=== PATIENT | male | born 1950 | race Caucasian/White ===

== ENCOUNTER 2018-11-20 02:39 | Emergency (ER) | payer SELFPAY ==
[2018-11-20 02:38] VITALS: BP 171/88; PULSE 104; RESP 20; TEMP 36.5; O2SAT 99
--- NOTE | 2018-11-20 02:53 | ED.GENADUL_ITS ---
Discharge Plan Disposition Patient Disposition: HOME Condition: Stable Discharge Details Chief Complaint: Diabetes Clinical Impression: Hyperglycemia Primary Care Provider: Aleksandr Estevez ED Provider: Vincent Estes Home Meds and New Rx's Prescriptions: Continued aspirin 325 mg Tablet 325 mg PO DAILY RF: 0 insulin aspart U-100 100 unit/mL (3 mL) Insulin Pen SUBCUT AC & HS RF: 0 Discharge Instructions Instructions: Diabetic Hyperglycemia (ED) Additional Instructions: I placed you on our follow up list to speak with care management to see if there is any assitance they can offer you. I also placed on the follow up list to see Dr. Estevez for diabetes management and blood pressure management if you feel more ill, have high fevers or worsening difficulty breathing return to the emergency department Medical Decision Making 67 yo male with hx of t2dm supposed to be on levemir 10mg bid and aspart but hasn't been taking his levemir for 10 weeks comes in with complaint of I got tired of walking. He apparently has been homeless, was homeless in [place] for quite some time then moved up here a few months ago and hasn't been taking his insulin. He recently was able to get assitance and moved into a hotel that assists homeless individuals in [place] but for some reason his room wasn't available [facility] so he started to walk from [place] to [facility] and after quite a bit of walking got tired so called ems. He arrives with no specific complaints and is pleasant on exam, caox4. He does have hyperglyemia as expected given him not taking his insulin. He declines blood work at this time and would just like to have some insulin and has capacity to make his own decisions. I will order him insulin for here and also place him on our rn critical care's list to reach out to him to see if there is any assitance they can offer him. He states he has prescriptions for insulin but finding funds for this has been difficult so hopefully care management may be able to assist with this. Will d/c after insulin and return precautions given. Placed him on follow up list to see his pcp for f/u and recheck of his bp. Differential Diagnosis Differential Diagnosis: t2dm, medical noncompliance HPI General Mode of arrival: EMS . Date/Time Provider Initiated Documentation: 11/20/18 02:40 . Limitations to Documentation: no limitations . Information obtained by: patient . History of Present Illness 67 year old M presents to the emergency department with the chief complaint of got tired of walking, Patient started experiencing this hour(s) (1) and it has been constant. No relieving factors improve symptom(s), No exacerbating factors reported . Patient did receive the following treatments prior to arrival, none Related Data Home Medications Medication Instructions Recorded Confirmed aspirin 325 mg PO DAILY 11/20/18 11/20/18 insulin aspart U-100 unit SUBCUT AC & HS 11/20/18 Allergies Allergy/AdvReac Type Severity Reaction Status Date / Time No Known Allergies Allergy Unverified 11/20/18 02:42 General Stated Complaint: Diabetes DREW: 3 Review of Systems Review of Systems ROS Unobtainable: All systems reviewed & are unremarkable except as noted in HPI and below Constitutional Constitutional: Denies chills, Denies fever(s) and Denies weakness Cardiovascular Cardiovascular: Denies dyspnea Respiratory Respiratory: Denies cough and Denies dyspnea Gastrointestinal Gastrointestinal: Denies abdominal pain, Denies nausea and Denies vomiting Musculoskeletal Musculoskeletal: Denies joint swelling Neurologic Neurologic: Denies weakness [facility] Social History Smoking/Tobacco Use Status: Never Alcohol Intake: never Drug use: Never Substance use type: does not use Do you feel safe at home: No (is homeless) Do you feel safe in your relationship?: Yes Exam Const General: no acute distress Orientation: alert HENMT Head: normal to inspection Ears: external ears normal General nose exam: external nose normal Mouth: moist mucous membranes Eyes General: appearance normal, both eyes and all related structures Neck Neck: normal visual inspection Resp Effort & Inspection: normal respiratory effort and able to speak in complete sentences Cardio Rate: regular rate Skin General skin exam: no rashes or lesions noted Neuro General: alert and oriented x3 Extrem General: normal to inspection Psych Mental Status: mental status grossly normal Course Vital Signs Vital signs: Vital Signs Temperature 36.5 C 11/20/18 02:38 Pulse 104 H 11/20/18 02:38 Respiratory Rate 20 11/20/18 02:38 Blood Pressure 171/88 H 11/20/18 02:38 Pulse Oximetry 99 11/20/18 02:38 Temperature 36.5 C 11/20/18 02:38 Temperature Source Temporal Artery Scan 11/20/18 02:38 Pulse 104 H 11/20/18 02:38 Respiratory Rate 20 11/20/18 02:38 Respiratory Effort 11/20/18 02:47 Blood Pressure 171/88 H 11/20/18 02:38 Blood Pressure Position Supine 11/20/18 02:38 Pulse Oximetry 99 11/20/18 02:38 Oxygen Delivery Method Room Air 11/20/18 02:38 Oxygen Flow Rate 0 11/20/18 02:38 Pain Level 0 11/20/18 02:38
--- NOTE | 2018-11-20 03:06 | NUR.NOTE ---
faxed referal 11/20/18Nursing Note:
[2018-11-20] MEDS: Insulin Aspart 100 UNITS/ML UNIT 10 UNITS SC (03:07)
== END 2018-11-20 03:28 | disposition home or self-care (01) ==
PROVIDERS: Emergency Provider Emergency Medicine; PCP General Practice
DX: E11.65 Type 2 diabetes mellitus with hyperglycemia (principal); Z91.120 Patient's intentional underdosing of medication regimen due to financial hardship; Z59.0 Homelessness
CPT/HCPCS: J1815; J3490

== ENCOUNTER 2018-11-20 06:05 | Emergency (ER) | payer MEDICARE, SELFPAY ==
[2018-11-20 05:49] VITALS: BP 125/113; PULSE 93; RESP 20; TEMP 36.1; O2SAT 98
--- NOTE | 2018-11-20 05:53 | ED.GENADUL_ITS ---
Discharge Plan Disposition Patient Disposition: HOME Condition: Stable Discharge Details Chief Complaint: GenMedical Clinical Impression: Blunt head trauma, General weakness, Fall Primary Care Provider: Aleksandr Estevez ED Provider: Cyndee Kendall Home Meds and New Rx's Prescriptions: Continued aspirin 325 mg Tablet 325 mg PO DAILY RF: 0 insulin aspart U-100 100 unit/mL (3 mL) Insulin Pen SUBCUT AC & HS RF: 0 insulin detemir U-100 100 unit/mL (3 mL) Insulin Pen 10 unit SUBCUT BID RF: 0 Discharge Instructions Instructions: Head Injury (ED), Weakness (ED) Additional Instructions: You likely were dehydrated from all the walking you did tonight Follow up with your scheduled appointment with your primary care doctor in 2 weeks. If you feel you are becoming more ill, have difficulty breathing or high fevers return to the emergency department Discharge Data Discharge Physician: Cyndee Kendall Medical Decision Making <Vincent Estes MD - Last Filed: 11/20/18 07:15> 67 yo male who has a hx of t2dm and is currently homeless comes in after his legs gave out and he hit his head on the ground. HE hasn't had his insulin in a few months and came in earlier to get some after walking from [place] as his hotel he had been staying at said he had no room overnight. He walked from here into [facility] and states he sat on a bench then tried to stood up, his legs got weak and he fell hitting his head on the ground. He is unsure of loc. Denies chest pain, sob, abd pain. He has no focal neuro deficits on exam, NIH of 0. I suspect this was orthostasis vs overexertion given the amount of walking he had today. Will eval for anemia and electrolyte abnoramlities and obtain ct head. Has no midline neck pain so doubt c spin einjury and has full rom of the neck. No chest pain or sob so doubt entities such as acs or PE or dissection. HE has a small 2cm hematoma on right forehead with abrasion, he is unsure of last tetanus status, will administer tdap here. pt remains stable, has ckd not significantly increased from prior and low mag and mild low K of 3.3. CT head negative and is feeling better. Suspect dehydration from amount of walking he had. Given his social situation and not having his meds will see if care management has any resources they can offer him before d/c Differential Diagnosis Differential Diagnosis: electrolyte abnormality, anemia, vasovagal Imaging Data Radiologic Study: Attestation: I personally reviewed and interpreted this imaging study as follows: Imaging: CT Scan Radiologist's impression: IMPRESSION: No acute intracranial abnormalities. Lab Data Lab results reviewed: Yes I reviewed the patient's lab results. ECG Data Attestation: I personally reviewed and interpreted this ECG (s) as follows: Prior ECG tracings: not available for review Interpretation: sinus rhythm, rate of 83, qtc 451 <Cyndee Kendall DO - Last Filed: 11/20/18 08:28> Please see Dr. Estes's notes for initial presentation and course. Patient seen by Dominga from care management and it was determined that patient is pretty well connected and has plenty of resources. He has an appointment with his primary care doctor Dr. Estevez in 2 weeks. He states he now has all of his medications. He is planning to call a friend today to see if he can stay with him until a bed is available at the motel he was staying on Thursday. Patient has whose contact information and she will follow-up with patient later today if he is unable to obtain housing for the next few days and she will look into a long-term. Patient states he feels good to go home. He is advised to return here with any worsening or concerning symptoms. HPI <Vincent Estes MD - Last Filed: 11/20/18 07:15> General Mode of arrival: EMS . Date/Time Provider Initiated Documentation: 11/20/18 06:35 . Limitations to Documentation: no limitations . Information obtained by: patient . History of Present Illness 67 year old M presents to the emergency department with the chief complaint of leg weakness, described as moderate, and it has been constant. No relieving factors improve symptom(s), No exacerbating factors reported . Patient did receive the following treatments prior to arrival, none Related Data Home Medications Medication Instructions Recorded Confirmed aspirin 325 mg PO DAILY 11/20/18 11/20/18 insulin aspart U-100 unit SUBCUT AC & HS 11/20/18 insulin detemir U-100 10 unit SUBCUT BID 11/20/18 11/20/18 Allergies Allergy/AdvReac Type Severity Reaction Status Date / Time No Known Allergies Allergy Unverified 11/20/18 05:51 General Stated Complaint: GenMedical DREW: 4 Review of Systems <Vincent Estes MD - Last Filed: 11/20/18 07:15> Review of Systems ROS Unobtainable: All systems reviewed & are unremarkable except as noted in HPI and below Constitutional Constitutional: Denies chills and Denies fever(s) Cardiovascular Cardiovascular: Denies chest pain and Denies dyspnea Respiratory Respiratory: Denies dyspnea Gastrointestinal Gastrointestinal: Denies abdominal pain, Denies nausea and Denies vomiting PFSH <Vincent Estes MD - Last Filed: 11/20/18 07:15> Social History Smoking/Tobacco Use Status: Never Alcohol Intake: never Drug use: Never Substance use type: does not use Do you feel safe at home: No (patient is homeless) Do you feel safe in your relationship?: Yes Exam <Vincent Estes MD - Last Filed: 11/20/18 07:15> Const General: no acute distress Orientation: alert HENMN Head: normal to inspection Ears: external ears normal General nose exam: external nose normal Mouth: moist mucous membranes Eyes General: appearance normal, both eyes and all related structures Neck Neck: normal visual inspection Resp Effort & Inspection: normal respiratory effort and able to speak in complete sentences Cardio Rate: regular rate Skin General skin exam: no rashes or lesions noted Neuro General: alert and oriented x3 Extrem General: normal to inspection Psych Mental Status: mental status grossly normal Course <Vincent Estes MD - Last Filed: 11/20/18 07:15> Vital Signs Vital signs: Vital Signs Temperature 36.1 C L 11/20/18 05:49 Pulse 93 H 11/20/18 05:49 Respiratory Rate 20 11/20/18 05:49 Blood Pressure 125/113 H 11/20/18 05:49 Pulse Oximetry 98 11/20/18 05:49 Temperature 36.1 C L 11/20/18 05:49 Temperature Source Temporal Artery Scan 11/20/18 05:49 Pulse 93 H 11/20/18 05:49 Respiratory Rate 20 11/20/18 05:49 Blood Pressure 125/113 H 11/20/18 05:49 Blood Pressure Position Supine 11/20/18 05:49 Pulse Oximetry 98 11/20/18 05:49 Oxygen Delivery Method Room Air 11/20/18 05:49 Oxygen Flow Rate 0 11/20/18 05:49 Pain Level 0 11/20/18 05:49 Sign Out <Vincent Estes MD - Last Filed: 11/20/18 07:15> Sign Out Data: Sign Out Comment: follow up on case management recs Last updated by Vincent Estes MD at 11/20/18 07:41
[2018-11-20 05:55] VITALS: RESP 18
[2018-11-20] MEDS: Normal Saline 1,000 ML 1000 ML IV (06:10)
[2018-11-20 06:20] VITALS: BP 158/73
[2018-11-20 06:32] LABS: Abs Immature Grans 0.07 k/cumm (0.0-0.09); Absolute Monocyte Count 0.59 k/cumm (0.11-0.7); Basophils % 0.5; Eosinophils % 0.8; HCT 38.4 % (40.0-50.0); HGB 13.6 g/dL (13.5-17.5); Immature Grans % 0.5; Lymphocytes % 7.1; Mean Corp. HGB Concentration 35.4 g/dL (32.0-36.0); Mean Corpuscular Hemoglobin 31.7 pg (27.0-33.0); Mean Corpuscular Volume 89.5 fL (80-95); Mean Platelet Volume 9.7 fL (8.0-11.0); Monocytes % 4.6; Neutrophils % 86.5; Platelet Count 244 x1000/uL (130-400); RBC 4.29 m/cumm (4.50-6.00); RBC Distribution Width 13.1 % (11.8-14.1); White Blood Cell Count 12.88 k/cumm (4.4-10.8)
[2018-11-20 06:34] LABS: Absolute Basophil Count 0.06 k/cumm (0.0-0.2); Absolute Lymphocyte Count 0.91 k/cumm (1.2-3.4); Absolute Neutrophil Count 11.14 k/cumm (1.2-6.7); pCO2 (Venous) 50 mm/Hg (34-47); pH (Venous) 7.38 (7.32-7.43); pO2 (Venous) 22 mm/Hg (28-44)
[2018-11-20 06:35] LABS: HCO3 (Venous) 29 mmol/L (22-28); TCO2 (Venous) 27 mmol/L (22-29)
[2018-11-20 06:37] LABS: O2 Sat (Venous) 33 % (70-80)
--- NOTE | 2018-11-20 06:38 | DI.CT_ITS ---
EXAM: CT HEAD WO CLINICAL HISTORY: pain s/p fall. TECHNIQUE: Imaging Protocol: Axial computed tomography images with coronal and sagittal reformatted images were created and reviewed COMPARISON: No exams were available for comparison FINDINGS: There is moderate generalized cerebral atrophy. No evidence of acute intracranial hemorrhage, mass effect, or midline shift. The orbital structures are unremarkable. The temporal bone structures appear intact. Calvarium: Normal. Visualized Paranasal sinuses/Mastoids: Mild mucoperiosteal thickening maxillary antra noted. IMPRESSION: No evidence of acute process.. DATA REPOSITORY: All CT scans at this facility are submitted to the National Radiology Data Registry (NRDR) Dose Index Registry (DIR) with the [employer] (ACR). RADIATION OPTIMIZATION: All CT scans at this facility use at least one of these dose optimization te chniques: automated exposure control; mA and/or kV adjustment per patient size (includes targeted exa ms where dose is matched to clinical indication); or iterative reconstruction.
[2018-11-20 06:49] LABS: PTT Activated 21.6 sec (21.0-31.4); Prothrombin Time 9.8 sec (9.3-11.0)
[2018-11-20 06:54] LABS: ALT 42 U/L (16-63); AST 32 U/L (15-37); Albumin 4.1 g/dL (3.4-5.0); Alkaline Phosphatase 157 U/L (46-116); Anion Gap 13.8 mmol/L (3-11); BUN 35 mg/dL (7-18); Bilirubin, Total 0.4 mg/dL (0.2-1.0); CO2 28.2 mmol/L (21.0-32.0); CREATININE 1.63 mg/dL (0.70-1.30); Calcium 9.6 mg/dL (8.5-10.1); Chloride 94 mmol/L (98-107); Estimated GFR 42.67 (mL/min/1.73m2); Glucose 274 mg/dL (70-100); Magnesium 1.3 mg/dL (1.8-2.4); Potassium 3.2 mmol/L (3.5-5.1); Sodium 136 mmol/L (136-145); Total Protein 8.2 g/dL (6.4-8.2)
[2018-11-20 06:55] LABS: Troponin I < 0.05 ng/mL (0.00-0.06)
--- NOTE | 2018-11-20 07:01 | DI.VRAD_ITS ---
PROCEDURE INFORMATION: Exam: CT Head Without Contrast Exam date and time: 11/20/2018 5:53 AM Clinical history: 67 years old, male; Injury or trauma; Fall; Initial encounter; Blunt trauma (contusions or hematomas) and laceration; Consciousness not specified; Without residual foreign body; Forehead; Injury date: 11/20/2018; Injury details: Small bump and lac above right eyebrow TECHNIQUE: Imaging protocol: Computed tomography of the head without contrast. Radiation optimization: All CT scans at this facility use at least one of these dose optimization techniques: automated exposure control; mA and/or kV adjustment per patient size (includes targeted exams where dose is matched to clinical indication); or iterative reconstruction. COMPARISON: No relevant prior studies available. FINDINGS: Brain: Moderate cerebral atrophy. No significant white matter changes. No hemorrhage. Ventricles: Normal. No ventriculomegaly. Bones/joints: Unremarkable. No acute fracture. Sinuses: Mild mucosal thickening, both maxillary sinuses. Mastoid air cells: Visualized mastoid air cells are well aerated. Soft tissues: Unremarkable. IMPRESSION: No acute intracranial abnormalities. Dictated and Authenticated by: Toby Ramirez MD. Ordering:ANGELO Kaur MD
[2018-11-20] MEDS: Magnesium Chloride 64 MG TABCR PO (07:54)
[2018-11-21 06:55] LABS: BE (Venous) 4.2 mmol/L (-3-3)
== END 2018-11-20 08:46 | disposition home or self-care (01) ==
PROVIDERS: Emergency Medicine; Emergency Provider Physician Assistant; PCP General Practice
DX: S00.03XA Contusion of scalp, initial encounter (principal); R53.1 Weakness; Z91.14 Patient's other noncompliance with medication regimen; W01.0XXA Fall on same level from slipping, tripping and stumbling without subsequent striking against object, initial encounter; Z59.0 Homelessness
CPT/HCPCS: 36415; 36416; 80053; 82805; 82962; 90471; 93005; 96360; 96372; 99284; 70450; 83735; 84484; 85025; 85610; 85730; 93010; J1815; J3490

== ENCOUNTER 2019-02-15 11:27 | Outpatient (REF) | payer OTHER, MEDICAID, SELFPAY ==
[2019-02-15 19:33] LABS: PROTEIN 28.1 mg/dL
[2019-02-15 19:42] LABS: COMMENT (LAB VIEW ONLY) 41.36 mg/dL
[2019-02-15 20:03] LABS: COMMENT (LAB VIEW ONLY) 41.44 mg/dL; Microalb ug/mg Crea 269.1 ug/mg Cr; Prot/Crea Ur Ratio 0.67
== END 2019-02-15 11:47 ==
LOC: NCHCN 11:27
PROVIDERS: PCP Nurse Practitioner Family; Visit Provider Nurse Practitioner Family
DX: I10 Essential (primary) hypertension (principal); E10.9 Type 1 diabetes mellitus without complications
CPT/HCPCS: 82043; 82565; 82570; 84156

== ENCOUNTER 2019-02-24 14:49 | Inpatient (IN) | payer OTHER, MEDICAID, SELFPAY ==
[2019-02-24] VITALS (110 sets, daily range): BP systolic 106–178; BP diastolic 63–104; PULSE 70–98; RESP 9–24; TEMP 35.6–36.9; O2SAT 94–99
[2019-02-24] MEDS: Aspirin 81 MG CHEW 324 MG CH (15:23)
[2019-02-24] MEDS: Lactated Ringers 1,000 ML 1000 ML IV (15:25)
[2019-02-24 15:28] LABS: Abs Immature Grans 0.02 k/cumm (0.0-0.09); Absolute Basophil Count 0.06 k/cumm (0.0-0.2); Absolute Eosinophil Count 0.18 k/cumm (0.0-0.7); Absolute Lymphocyte Count 1.41 k/cumm (1.2-3.4); Absolute Monocyte Count 0.53 k/cumm (0.11-0.7); Absolute Neutrophil Count 6.01 k/cumm (1.2-6.7); Basophils % 0.7; Eosinophils % 2.2; HCT 37.4 % (40.0-50.0); HGB 13.2 g/dL (13.5-17.5); Immature Grans % 0.2 %; Lymphocytes % 17.2; Mean Corp. HGB Concentration 35.3 g/dL (32.0-36.0); Mean Corpuscular Hemoglobin 31.2 pg (27.0-33.0); Mean Corpuscular Volume 88.4 fL (80-95); Mean Platelet Volume 10.5 fL (8.0-11.0); Monocytes % 6.5; Neutrophils % 73.2; Platelet Count 229 x1000/uL (130-400); RBC 4.23 m/cumm (4.50-6.00); RBC Distribution Width 12.7 % (11.8-14.1); White Blood Cell Count 8.21 k/cumm (4.4-10.8)
--- NOTE | 2019-02-24 15:34 | W.ED.GENAD ---
Discharge Plan Disposition Patient Disposition: [facility] INPATIENT Condition: Fair Discharge Details Chief Complaint: Chest Pain Clinical Impression: Chest pain, Hyperglycemia Admit Date/Time: 02/24/19 19:08 Admit Provider: Aleksandr Ho Attending Provider: Aleksandr Ho Primary Care Provider: Pal Luo ED Provider: Twila Jain Medical Decision Making <MP Vega - Last Filed: 02/24/19 16:14> This is a nontoxic-appearing 68-year-old male presenting to the emergency department with intermittent chest pain over the last 12 hours. Unable to provoke symptoms. Moderate heart score and based on age, story and risk factors. His EKG shows sinus rhythm without ST changes. Blood glucose greater than 500 on glucometer. Normal pH on venous blood gas. LR running at 1000 cc an hour. Chest x-ray negative for any infiltrate. Most likely require admission based on heart score and uncontrolled diabetes. Case signed over to Magdalena WEBB at shift change. <MP Duque - Last Filed: 02/24/19 21:18> Accepted this 68-year-old patient who complained of chest pain today with a history of diabetes as well as hypertension, noncompliant with his daily medications. Patient has multiple social barriers specifically he is homeless and has not had the finances to pay for his medications. Patient presents with a serum blood sugar of 784. Patient reports feeling symptomatic but denies nausea, vomiting. Patient's initial presentation for the emergency room this evening was for complaints of chest pain which was intermittent through the afternoon then developed radiating symptoms into his left arm. Upon patient's evaluation in the emergency room he is reportedly chest pain-free. Patient's initial labs were reviewed, VBG reveals no evidence of acidosis at this time. Patient's lactate initially somewhat elevated 1.9. Patient has no complaints of fever or chills. No obvious infectious symptoms. Patient's history does not include a cardiac evaluation within the last few years and including a stress test and echo. Review of patient's EKG reveals no ST segment changes, regular rate and rhythm of 91. This was previously reviewed with Dr. Angel by the previous provider. Heart Score: 4 = moderate risk Patient initially received 1 L of LR, aborted a second liter of normal saline. Given patient's blood sugar of 784 and initial bolus based on his weight of 7 units was provided followed by an insulin drip of 7 units an hour per [facility] protocol. Patient subsequent labs revealed a initial troponin which was negative. Lactate elevated to 4.0. Patient's blood sugar improved to 445. Spoke with the hospitalist regarding admitting this patient. Recommended continued IV fluids at a rate of 250/h. He will enter admission orders and plan to follow the patient for his complaints of chest pain as well as manage blood sugars. I did consult to case management director as there are quite obviously social issues and barriers in this patient getting his medications normally. Plan of care at this time is admit to the hospital. HPI <MP Vega - Last Filed: 02/24/19 16:14> General Date/Time Provider Initiated Documentation: 02/24/19 14:51. HPI Narrative: Patient is a 68-year-old male with medical history for insulin-dependent diabetes who presents to the emergency department with roughly 12 to 24 hours of intermittent left-sided chest pain. He denies any preceding symptoms. He has been under significant amount of stress based on his living situation and is currently homeless. He reports developing left arm tingling roughly 45 minutes prior to arrival in association with his chest pain. He denies any chest pain at this time. He denies any shortness of breath. No fever or cough. He has been roughly 1 week without any insulin based on financial issues and having his insurance removed. He has had frequent urination. No abdominal pain or dysuria. Patient states that he had similar chest pain symptoms roughly 1 year ago where he was admitted to the hospital in [place]. He had an extensive work-up at that time and was hospitalized for roughly 1 week. He states that he had no cardiac intervention at that time. Related Data Home Medications Medication Instructions Recorded Confirmed aspirin 325 mg PO DAILY 11/20/18 02/24/19 insulin aspart U-100 unit SUBCUT AC & HS 11/20/18 insulin detemir U-100 10 unit SUBCUT BID 11/20/18 02/24/19 Allergies Allergy/AdvReac Type Severity Reaction Status Date / Time No Known Allergies Allergy Unverified 02/24/19 14:56 General Stated Complaint: Chest Pain DREW: 2 Review of Systems <MP Vega - Last Filed: 02/24/19 16:14> Constitutional Constitutional: Reports chills, Denies fatigue, Denies fever(s), Denies malaise, Denies night sweats and Denies weakness Cardiovascular Cardiovascular: Reports chest pain, Reports chest pain at rest, Denies chest pain with activity, Denies diaphoresis, Denies syncope, Denies pedal edema, Reports edema, Reports leg edema, Denies lightheadedness, Denies palpitations and Denies dyspnea Respiratory Respiratory: Denies cough and Denies dyspnea Gastrointestinal Gastrointestinal: Denies abdominal pain, Denies nausea and Denies vomiting Genitourinary Genitourinary: Denies dysuria and Reports nocturia Musculoskeletal Musculoskeletal: Denies back pain, Denies numbness and Denies stiffness Neurologic Neurologic: Denies syncope, Denies numbness and Denies weakness Endocrine Endocrine: Denies fatigue, Reports polyphagia, Reports polydipsia, Reports polyuria and Denies palpitations PFSH <MP Vega - Last Filed: 02/24/19 16:14> Medical History HTN (hypertension) (Chronic) Uncontrolled type 2 diabetes mellitus with chronic kidney disease (Acute) Social History Smoking/Tobacco Use Status: Never Alcohol Intake: never Drug use: Never Substance use type: does not use Do you feel safe at home: No (patient is homeless) Do you feel safe in your relationship?: Yes Exam <MP Vega - Last Filed: 02/24/19 16:14> Const General: cooperative, healthy appearing, comfortable and no acute distress Orientation: alert, awake and oriented x3 HENMT Head: normal to inspection Ears: hearing grossly normal bilaterally General nose exam: external nose normal Face and sinus: normal facial exam Mouth: oral mucosae normal Teeth and gingiva: poor dentition Eyes Pupils: PERRL EOM: EOM intact bilaterally Neck Neck: normal visual inspection and full ROM Chest Chest: normal inspection of the chest and normal palpation of entire chest wall Resp Effort & Inspection: normal respiratory effort and able to speak in complete sentences Auscultation: clear to auscultation bilaterally Cardio Rate: regular rate Rhythm: regular rhythm Pulses: normal peripheral pulses GI Inspection: normal to inspection Palpation: soft and nontender Back/Spine/Pelvis Back: no CVA tenderness Skin General skin exam: no rashes or lesions noted Extrem General: normal to inspection, full ROM, no pedal edema and no calf tenderness Course <MP Vega - Last Filed: 02/24/19 16:14> Vital Signs Vital signs: Vital Signs Temperature 36.9 C 02/24/19 14:54 Pulse 92 H 02/24/19 14:54 Respiratory Rate 18 02/24/19 14:54 Blood Pressure 157/99 H 02/24/19 14:54 Pulse Oximetry 98 02/24/19 14:54 Temperature 36.9 C 02/24/19 14:54 Temperature Source Skin 02/24/19 14:54 Pulse 88 02/24/19 15:15 Pulse 85 02/24/19 15:20 Respiratory Rate 14 02/24/19 15:20 Respiratory Effort 02/24/19 15:18 Respiratory Depth Normal 02/24/19 15:18 Respiratory Pattern Normal 02/24/19 15:18 Blood Pressure 156/88 H 02/24/19 15:15 Blood Pressure Mean 105 02/24/19 15:15 Blood Pressure Position Supine 02/24/19 14:54 Pulse Oximetry 96 02/24/19 15:20 Oxygen Delivery Method Room Air 02/24/19 14:54 Oxygen Flow Rate 0 02/24/19 14:54 Pain Level 4 02/24/19 14:54 Sign Out <MP Vega - Last Filed: 02/24/19 16:14> Sign Out Data: Sign Out Comment: Patient is a 68-year-old male moderate heart score complaining of chest pain. EKG shows sinus rhythm without any ST changes. Concern for elevated blood sugars with glucometer reading above 500. Normal pH on venous blood gas. Normal CBC awaiting remainder of labs. IV fluids running LR at 1000 cc an hour. Will most likely require admission based on heart score alone. Case signed over to Cristobal PAC at shift change Last updated by Campbell Bloom PA at 02/24/19 16:07
[2019-02-24 15:38] LABS: BE (Venous) 6.8 mmol/L (-3-3); HCO3 (Venous) 31 mmol/L (22-28); O2 Sat (Venous) 71 % (70-80); TCO2 (Venous) 28 mmol/L (22-29); pCO2 (Venous) 49 mm/Hg (34-47); pH (Venous) 7.42 (7.35-7.45); pO2 (Venous) 38 mm/Hg (28-44)
[2019-02-24 15:43] LABS: Lactate 1.9 mmol/L (0.6-1.4)
--- NOTE | 2019-02-24 15:46 | DI.RAD_ITS ---
EXAM: XR CHEST 2V PA LATERAL INDICATION: left sided chest pain, left arm pain. resolved. COMPARISON: No exams were available for comparison TECHNIQUE: 2D digital imaging was performed. FINDINGS: The heart size is normal. The lungs appear clear. Scoliosis is noted. No compression fractures ar e seen. There is no evidence of pneumothorax. IMPRESSION: No acute abnormality.
[2019-02-24 16:02] LABS: ALT 28 U/L (16-63); AST 21 U/L (15-37); Albumin 3.5 g/dL (3.4-5.0); Alkaline Phosphatase 118 U/L (46-116); Anion Gap 9.1 mmol/L (3-11); BUN 33 mg/dL (7-18); Bilirubin, Total 0.3 mg/dL (0.2-1.0); CO2 29.9 mmol/L (21.0-32.0); CREATININE 1.74 mg/dL (0.70-1.30); Chloride 89 mmol/L (98-107); Estimated GFR 39.45 (mL/min/1.73m2); Magnesium 1.3 mg/dL (1.8-2.4); Potassium 4.4 mmol/L (3.5-5.1); Sodium 128 mmol/L (136-145); Total Protein 6.9 g/dL (6.4-8.2)
[2019-02-24 16:05] LABS: Bilirubin Negative (Negative); Blood Trace-intact (Negative); Clarity Clear (Clear); Glucose 500 mg/dL (Negative); Ketones Negative (Negative); Leukocyte Esterase Negative (Negative); Nitrite Negative (Negative); Specific Gravity 1.015 (1.005-1.025); Urobilinogen 0.2 EU/dL (Up TO 0.2)
[2019-02-24 16:09] LABS: Troponin I < 0.05 ng/Ml (<0.06)
--- NOTE | 2019-02-24 16:13 | NUR.NOTE ---
diabetic meal tray ordered for pt Nursing Note:
[2019-02-24 16:14] LABS: Bacteria Rare HPF (Negative); C & S Indicated? No; Casts Negative LPF (Negative); Crystals Negative HPF (Negative); Epithelial Cells Negative HPF (Negative); Mucus Negative (Negative); RBC 0-2 HPF (0-2); WBC Negative HPF (0-5)
[2019-02-24 16:17] LABS: Glucose 784 mg/dL (74-106)
[2019-02-24] MEDS: Normal Saline 1,000 ML 1000 ML IV (17:00)
[2019-02-24] MEDS: Insulin NPH-Human 300 UNITS/3 ML PEN 7 UNIT SC (17:07)
[2019-02-24] MEDS: INSULIN REGULAR IN 0.9 % NACL 100 UNIT/100 ML BAG 7 UNIT IV (17:13)
[2019-02-24 19:10] LABS: ALT 23 U/L (16-63); AST 15 U/L (15-37); Albumin 2.9 g/dL (3.4-5.0); Alkaline Phosphatase 98 U/L (46-116); Anion Gap 9.8 mmol/L (3-11); BUN 29 mg/dL (7-18); Bilirubin, Total 0.2 mg/dL (0.2-1.0); CO2 29.2 mmol/L (21.0-32.0); CREATININE 1.91 mg/dL (0.70-1.30); Calcium 8.4 mg/dL (8.5-10.1); Chloride 97 mmol/L (98-107); Estimated GFR 35.43 (mL/min/1.73m2); Glucose 445 mg/dL (74-106); Potassium 3.7 mmol/L (3.5-5.1); Sodium 136 mmol/L (136-145); Total Protein 5.8 g/dL (6.4-8.2)
[2019-02-24] MEDS: Normal Saline 1,000 ML 250 ML IV ×2 (19:10→22:39)
--- NOTE | 2019-02-24 19:18 | W.PM.HP.N ---
Date of service: 02/24/19 Time of Service: 19:19 Assessment and Plan Assessment and plan (1) HHNC (hyperglycemic hyperosmolar nonketotic coma): Start date: 02/24/19 Status: Acute Assessment and plan: This is a 68-year-old gentleman who is been off treatment for diabetes recently because of cost. He also was having problems with housing and most likely diet. He was seen in the ED and initiated on fluid resuscitation and given an insulin drip with quick response and glucometer just measured less than 200. He was hypertensive when first admitted but this resolved with hydration. He was never acidotic. He will be taken off insulin drip and started on every 2 hour glucometer coverage with Humalog with continued IV hydration and follow-up on lactate which was elevated. If his glucose does rise despite every 2 hour coverage we could restart the insulin drip cautiously. He never had DKA. Long-term he needs to be restarted on his usual insulin therapy with diet with his housing and diet stress hopefully to be resolved prior to discharge with placement to a [facility] members home and possibly reviewing his insurance coverage to afford medical therapy. He does have a local primary care physician who has seen him recently. He was seeing Dr. Esteevz but had to change because of this practice closing. (2) Atypical chest pain: Start date: 02/24/19 Status: Acute Assessment and plan: Patient chest pain was atypical and he had recent full evaluation in [facility]. I will start him on Lipitor and check fasting lipids in the morning but hold on AVINASH inhibitor or other therapy for now. He could be reevaluated with cardiology if necessary but first his primary care physician needs to review his recent evaluation in [place]. Poor diabetes control does put him at increased risk for advanced atherosclerotic vessel disease. (3) CKD (chronic kidney disease): Status: Chronic Assessment and plan: Patient states that he has had problems with renal insufficiency in the past and this probably has been exacerbated by his acute hyperglycemic state with dehydration. Follow-up renal functions on normal saline with aggressive fluid resuscitation to continue overnight. He is eating well and should do well with conversion to oral hydration and diet once stabilized in the next 24 to 40 hours. Qualifiers: Chronic kidney disease stage: stage 2 (mild) Qualified Code(s): N18.2 - Chronic kidney disease, stage 2 (mild) History of Present Illness History of Present Illness Chief Complaint: Intermittent chest pain going down left arm with hyperglycemia Narrative: This is a 68-year-old gentleman who lives and a hotel at this time but overall has trouble with housing locally having moved from [place] back to [place] over this last year. He is a diabetic for 30 years and has been on insulin recently but cannot afford his insulin and has been off medical therapy. He had a glucometer greater than 500 in the field and in the ED his serum glucose was 74. He was initiated on lactated Ringer's and switched to normal saline with his lactate being elevated on the second measurement. He also was started on an insulin drip with his glucose below 500 when last measured prior to admission to the ICU. He states that in [place] he was evaluated in [place] for chest pain including stress test and echocardiogram with the patient discharged on medical therapy including possible AVINASH inhibitor and statin. Recently has not been on medical therapy. He does have a history of hypertension intermittently. Patient's chest pain prior to admission resolved in the ED and never returned with a negative cardiac evaluation and follow-up troponins pending after admission. He is on bus monitor with sinus rhythm. He is a poorly controlled diabetic with his recent primary care locally measuring his hemoglobin A1c which was the range of 15. He was having polyuria and polydipsia prior to admission but had no problem with nausea vomiting or fluid loss. He said no recent fever or symptoms of infection. He denies dysuria. Patient lives on Social Security and recently his insulin cost increased from a co-pay of $8 to an unaffordable co-pay. 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 hotel operations manager will be consulted to help him with his social and economic issues. Review of Systems Narrative: 13 point review of systems otherwise unrevealing or stable. Denies any significant weight loss. He is very active walking as a mode of transportation having no claudication or shortness of breath. [facility] Medical History HTN (hypertension) (Chronic) Uncontrolled type 2 diabetes mellitus with chronic kidney disease (Acute) Social History Smoking/Tobacco Use Status: Never Alcohol Intake: never Drug use: Never Substance use type: does not use Do you feel safe at home: No (patient is homeless) Do you feel safe in your relationship?: Yes Meds Home Medications and Allergies Home Medications Medication Instructions Recorded Confirmed Type aspirin 325 mg PO DAILY 11/20/18 02/24/19 History insulin aspart U-100 unit SUBCUT AC & HS 11/20/18 History insulin detemir U-100 10 unit SUBCUT BID 11/20/18 02/24/19 History Allergies Allergy/AdvReac Type Severity Reaction Status Date / Time No Known Allergies Allergy Unverified 02/24/19 14:56 Exam Narrative Exam Narrative: General: Patient appears older than stated age and in no acute distress, thin and alert and oriented x3. Skin: Pale, cool and dry. HEENT: Normocephalic with coarsened facial features, eyes with pupils equal reactive light symmetrically, extraocular movement intact and sclera anicteric. Oropharynx with dry oral mucosa. External ears normal. Neck: Supple without JVD. Back: Stooped posture with no CVA tenderness. Lungs: Clear to auscultation and percussion. Heart: Regular rate and rhythm with no murmurs or gallops appreciated. Abdomen: Soft, nontender to palpation and no palpable hepatosplenomegaly. Bowel sounds are positive in all quadrants. Genitalia/rectal: Exam deferred. Extremities: No pitting edema, cyanosis or clubbing. Toenails are thickened and opaque with kandice's horn toenails over the large toenails. All joints have fair range of motion. Peripheral pulses intact with posterior tib pulses 2+ bilaterally and dorsalis pedis pulses more difficult to palpate. Neuro: No focalizing motor deficits, cranial nerves II through XII grossly intact, light touch over both feet intact. Psych: Flattened affect but normal variation, good eye contact. Mood normal. Remote and recent memory intact. Results Imaging Imaging Studies: Exam(s) a RAD:XR chest 2V PA & lateral EXAM: XR CHEST 2V PA LATERAL INDICATION: left sided chest pain, left arm pain. resolved. COMPARISON: No exams were available for comparison TECHNIQUE: 2D digital imaging was performed. FINDINGS: The heart size is normal. The lungs appear clear. Scoliosis is noted. No compression fractures are seen. There is no evidence of pneumothorax. IMPRESSION: No acute abnormality. Labs Result diagrams: 02/24/19 15:10 02/24/19 18:44 Labs: Laboratory Results - last 24 hr 02/24/19 02/24/19 02/24/19 15:10 15:10 15:10 WBC 8.21 RBC 4.23 L Hgb 13.2 L Hct 37.4 L MCV 88.4 MCH 31.2 MCHC 35.3 RDW 12.7 Plt Count 229 MPV 10.5 Immature Gran % 0.2 Neutrophils % 73.2 Lymphocytes % 17.2 Monocytes % 6.5 Eosinophils % 2.2 Basophils % 0.7 Absolute Neutrophils 6.01 Absolute Lymphocytes 1.41 Absolute Monocytes 0.53 Absolute Eosinophils 0.18 Absolute Basophils 0.06 VBG pH VBG pCO2 VBG pO2 VBG HCO3 VBG Total CO2 VBG O2 Saturation VBG Base Excess Sodium 128 L Potassium 4.4 Chloride 89 L Carbon Dioxide 29.9 Anion Gap 9.1 BUN 33 H Creatinine 1.74 H Estimated GFR/1.73 m2 39.45 Glucose 784 H* Lactate 1.9 H Calcium 9.0 Magnesium 1.3 L Total Bilirubin 0.3 AST 21 ALT 28 Alkaline Phosphatase 118 H Troponin I < 0.05 Total Protein 6.9 Albumin 3.5 Urine Color Urine Clarity Urine pH Ur Specific [place] Urine Protein Urine Ketones Urine Blood Urine Nitrite Urine Bilirubin Urine Urobilinogen Ur Leukocyte Esterase Urine RBC Urine WBC Ur Epithelial Cells Urine Crystals Urine Bacteria Urine Casts Urine Mucus Ur Culture Indicated? Urine Glucose 02/24/19 02/24/19 02/24/19 15:10 16:00 18:44 WBC RBC Hgb Hct MCV MCH MCHC RDW Plt Count MPV Immature Gran % Neutrophils % Lymphocytes % Monocytes % Eosinophils % Basophils % Absolute Neutrophils Absolute Lymphocytes Absolute Monocytes Absolute Eosinophils Absolute Basophils VBG pH 7.42 VBG pCO2 49 H VBG pO2 38 VBG HCO3 31 H VBG Total CO2 28 VBG O2 Saturation 71 VBG Base Excess 6.8 H Sodium Potassium Chloride Carbon Dioxide Anion Gap BUN Creatinine Estimated GFR/1.73 m2 Glucose Lactate 4.0 H* Calcium Magnesium Total Bilirubin AST ALT Alkaline Phosphatase Troponin I Total Protein Albumin Urine Color Yellow Urine Clarity Clear Urine pH 7.0 Ur Specific [place] 1.015 Urine Protein Negative Urine Ketones Negative Urine Blood Trace-intact H Urine Nitrite Negative Urine Bilirubin Negative Urine Urobilinogen 0.2 Ur Leukocyte Esterase Negative Urine RBC 0-2 Urine WBC Negative Ur Epithelial Cells Negative Urine Crystals Negative Urine Bacteria Rare Urine Casts Negative Urine Mucus Negative Ur Culture Indicated? No Urine Glucose 500 H Last Vital Signs Temp 36.9 C 02/24/19 14:54 Pulse 83 02/24/19 18:46 Resp 12 02/24/19 18:50 BP 134/75 02/24/19 18:46 Pulse Ox 96 02/24/19 18:50
[2019-02-24 19:20] LABS: Troponin I < 0.05 ng/Ml (<0.06)
[2019-02-24] MEDS: MAGNESIUM SULFATE 2 GM/50 ML BAG IVPB (19:27)
[2019-02-24 20:07] LABS: TSH 1.73 uIU/mL (0.36-3.74)
[2019-02-24] MEDS: Enoxaparin 40 MG/0.4 ML SYR SC (21:36)
[2019-02-25] VITALS (70 sets, daily range): BP systolic 95–139; BP diastolic 63–103; PULSE 66–88; RESP 8–21; TEMP 36.5–36.7; O2SAT 95–99
[2019-02-25 00:09] LABS: Lactate 1.5 mmol/L (0.6-1.4)
[2019-02-25] MEDS: Insulin Aspart 300 UNITS/3 ML PEN SC ×8 (00:18→21:21)
[2019-02-25 00:35] LABS: Troponin I < 0.05 ng/Ml (<0.06)
[2019-02-25] MEDS: Normal Saline 1,000 ML 250 ML IV ×2 (02:31→06:39)
[2019-02-25 06:29] LABS: Lactate 0.7 mmol/L (0.6-1.4)
[2019-02-25 06:54] LABS: ALT 21 U/L (16-63); AST 19 U/L (15-37); Albumin 2.6 g/dL (3.4-5.0); Alkaline Phosphatase 83 U/L (46-116); Anion Gap 6.6 mmol/L (3-11); BUN 21 mg/dL (7-18); Bilirubin, Total 0.2 mg/dL (0.2-1.0); CO2 29.4 mmol/L (21.0-32.0); CREATININE 1.09 mg/dL (0.70-1.30); Calcium 7.7 mg/dL (8.5-10.1); Chloride 108 mmol/L (98-107); Glucose 214 mg/dL (74-106); Potassium 3.7 mmol/L (3.5-5.1); Sodium 144 mmol/L (136-145); Total Protein 5.3 g/dL (6.4-8.2)
[2019-02-25 06:56] LABS: Albumin 2.6 g/dL (3.4-5.0); Anion Gap 7.8 mmol/L (3-11); BUN 21 mg/dL (7-18); CO2 27.2 mmol/L (21.0-32.0); Calcium 7.6 mg/dL (8.5-10.1); Chloride 107 mmol/L (98-107); Glucose 214 mg/dL (74-106); PHOSPHORUS 2.4 mg/dL (2.6-4.7); Potassium 3.7 mmol/L (3.5-5.1); Sodium 142 mmol/L (136-145)
[2019-02-25 07:07] LABS: Magnesium 1.2 mg/dL (1.8-2.4)
[2019-02-25 07:09] LABS: HCT 35.2 % (40.0-50.0); HGB 12.1 g/dL (13.5-17.5); Mean Corp. HGB Concentration 34.4 g/dL (32.0-36.0); Mean Corpuscular Hemoglobin 30.9 pg (27.0-33.0); Mean Corpuscular Volume 89.8 fL (80-95); Mean Platelet Volume 10.4 fL (8.0-11.0); Platelet Count 210 x1000/uL (130-400); RBC 3.92 m/cumm (4.50-6.00); White Blood Cell Count 6.83 k/cumm (4.4-10.8)
[2019-02-25 07:14] LABS: Calculated LDL 92 mg/dL; Cholesterol 163 mg/dL (<200); HDL Cholesterol 38 mg/dL (40-60); Triglyceride 167 mg/dL (<150)
[2019-02-25] MEDS: Atorvastatin 20 MG TAB PO (08:25)
[2019-02-25] MEDS: Aspirin 325 MG TAB PO (08:25)
--- NOTE | 2019-02-25 08:42 | PHARADMIT ---
Admission Pharmacy Clinical Review hyperglycemia W/hhnc, atypical chest pain Code Status Full Code Current Weight Wgt-67.8 kg Renally Cleared and Narrow Therapeutic Index Meds CrCl~57mL/min Meds-OK QTc Value / Action Taken BP Control, Fever BP-108/63 Tmax-36.5C Electrolytes reviewed Na-142 K+3.7 Mag-1.2 Phos-2.4 Ca-7.6 DVT Prophylaxis Lovenox 40mg ASA Opiate Usage / Scheduled Bowel Regimen Ordered No Yes Plt/SCr for Heparin / Enoxaparin Plts-210 SCr-1.10 INR for Warfarin na H/H stable, WBC/Bands H&H-12.1/35.2 WBC-6.83 Antibiotic appropriateness na Cultures and Sensitivities none Surgical ABX d/c within 24 hr na DM control / Insulin Dosing BG-214 (was 784) on Aspart Heart Failure (Check EF%) (AVINASH's, B-Block, Diuretics) none IV to PO Switch No Home Meds Reviewed Yes Home Meds Not Ordered Detemir, Comments
--- NOTE | 2019-02-25 10:08 | PGE_ITS ---
Date of Service Date of service: 02/25/19 Time of Service: 10:09 Assessment and Plan Assessment and plan (1) HHNC (hyperglycemic hyperosmolar nonketotic coma): Status: Acute Assessment and plan: We will start the patient on basal bolus insulin starting with 10 units of NPH now and then 10 units of NPH twice a day. We will put him on carbohydrate coverage as well as a moderate insulin sliding scale. We will give him a good Rx card so that he can get his generic insulin at an affordable [place]. We will ask him to stay with us today while we are adjusting his insulin and making sure that he does go back and hyperosmolar nonketotic hyperglycemia. (2) Uncontrolled type 2 diabetes mellitus with chronic kidney disease: Status: Acute Assessment and plan: Insulin adjustment as above. Will consult peer educator. (3) Atypical chest pain: Status: Acute Assessment and plan: We will obtain his records regarding his cardiac work-up performed in [facility]. If these are unavailable or if stress MPI was not performed that we will arrange one as an outpatient next week. (4) CKD (chronic kidney disease): Status: Chronic Assessment and plan: Creatinine is improved overnight with IV fluid hydration. He is now eating drinking adequately so I think we can stop his IV fluids. Interestingly enough his urinalysis did not show gross proteinuria. I will get a urine protein to creatinine ratio. Repeat his BMP in the morning. Ideally he should be on AVINASH inhibitor or angiotensin receptor erendira but his blood pressures were too low last night to restart this. Blood pressures are still borderline this morning I will hold off on AVINASH inhibitor or an angiotensin receptor erendira for now. Qualifiers: Chronic kidney disease stage: stage 2 (mild) Qualified Code(s): N18.2 - Chronic kidney disease, stage 2 (mild) (5) HTN (hypertension): Status: Chronic Assessment and plan: As above Qualifiers: Hypertension type: essential hypertension Qualified Code(s): I10 - Essential (primary) hypertension (6) Discharge planning issues: Status: Acute Assessment and plan: Patient apparently had been living with relatives or friends when he first came back to [place] but is now living out of a motel. We will ask case management to assist him with seeking housing. He indicated he was trying to get help from friends at [employer] to see if he could live with them for a while. For now he is living out of a motel until his money runs out. Subjective Subjective Interval history since last seen: No further chest pain. Glucose levels have come down and he is now off the insulin drip. Glucose readings of 177 this morning although after breakfast is now up to 326. He is just on a sliding scale insulin. At home he had been taken 10 units of Levemir twice a day. He admits he has been off his insulin for 2 weeks now. He reportedly cannot afford his insulin. He reports that his new PCP indicated him that because he is not lived in [place] long enough since his return from [place] that she could not do anything for him with getting his insulin. I explained to the patient that he just needs a prescription and he can get generic NPH and generic Regular Insulin from [facility] for as little as $24 $25 per thousand unit vial. He came in last night with hyperosmolar nonketotic hyperglycemia and responded to IV fluid hydration and IV insulin. He also presented with atypical chest pain which has since resolved. He reportedly had a work-up while in [facility] less than a year ago. We will get a try get records from either [facility] or from his local PCP. His chest pain is intermittent sharp lasting 2 to 3 minutes and located over the left side of his chest not associated with physical exertion. No dyspnea with this. Chest pain was not reproducible with palpation of his chest wall. If we are unable to obtain records or if in fact he did not have a stress test while in [place] then we will arrange to get one next week as an outpatient. Exam Narrative Exam Narrative: Thin late middle-aged male in no acute distress. Neck is supple without JVD normal carotid pulses. Lungs are clear to auscultation. Heart is regular rate and rhythm without murmur rub or gallop. Abdomen soft and nontender without distention and no bruits. Extremities without peripheral cyanosis or edema. Objective Objective Clinical Data: Abnormal lab results 02/24/19 02/24/19 02/24/19 Range/Units 15:10 15:10 15:10 RBC 4.23 L (4.50-6.00) m/cumm Hgb 13.2 L (13.5-17.5) g/dL Hct 37.4 L (40.0-50.0) % VBG pCO2 (34-47) mm/Hg VBG HCO3 (22-28) mmol/L VBG Base Excess (-3-3) mmol/L Sodium 128 L (136-145) mmol/L Chloride 89 L (98-107) mmol/L BUN 33 H (7-18) mg/dL Creatinine 1.74 H (0.70-1.30) mg/dL Glucose 784 H* (74-106) mg/dL Lactate 1.9 H (0.6-1.4) mmol/L Calcium (8.5-10.1) mg/dL Phosphorus (2.6-4.7) mg/dL Magnesium 1.3 L (1.8-2.4) mg/dL Alkaline Phosphatase 118 H (46-116) U/L Total Protein (6.4-8.2) g/dL Albumin (3.4-5.0) g/dL Triglycerides (<150) mg/dL HDL Cholesterol (40-60) mg/dL Urine Blood (Negative) Urine Glucose (Negative) mg/dL 02/24/19 02/24/19 02/24/19 Range/Units 15:10 16:00 18:44 RBC (4.50-6.00) m/cumm Hgb (13.5-17.5) g/dL Hct (40.0-50.0) % VBG pCO2 49 H (34-47) mm/Hg VBG HCO3 31 H (22-28) mmol/L VBG Base Excess 6.8 H (-3-3) mmol/L Sodium (136-145) mmol/L Chloride 97 L (98-107) mmol/L BUN 29 H (7-18) mg/dL Creatinine 1.91 H (0.70-1.30) mg/dL Glucose 445 H D (74-106) mg/dL Lactate (0.6-1.4) mmol/L Calcium 8.4 L (8.5-10.1) mg/dL Phosphorus (2.6-4.7) mg/dL Magnesium (1.8-2.4) mg/dL Alkaline Phosphatase (46-116) U/L Total Protein 5.8 L (6.4-8.2) g/dL Albumin 2.9 L (3.4-5.0) g/dL Triglycerides (<150) mg/dL HDL Cholesterol (40-60) mg/dL Urine Blood Trace-intact H (Negative) Urine Glucose 500 H (Negative) mg/dL 02/24/19 02/24/19 02/25/19 Range/Units 18:44 23:55 06:20 RBC (4.50-6.00) m/cumm Hgb (13.5-17.5) g/dL Hct (40.0-50.0) % VBG pCO2 (34-47) mm/Hg VBG HCO3 (22-28) mmol/L VBG Base Excess (-3-3) mmol/L Sodium (136-145) mmol/L Chloride (98-107) mmol/L BUN 21 H (7-18) mg/dL Creatinine (0.70-1.30) mg/dL Glucose 214 H (74-106) mg/dL Lactate 4.0 H* 1.5 H (0.6-1.4) mmol/L Calcium 7.6 L (8.5-10.1) mg/dL Phosphorus 2.4 L (2.6-4.7) mg/dL Magnesium (1.8-2.4) mg/dL Alkaline Phosphatase (46-116) U/L Total Protein (6.4-8.2) g/dL Albumin 2.6 L (3.4-5.0) g/dL Triglycerides (<150) mg/dL HDL Cholesterol (40-60) mg/dL Urine Blood (Negative) Urine Glucose (Negative) mg/dL 02/25/19 02/25/19 02/25/19 Range/Units 06:20 06:20 06:20 RBC (4.50-6.00) m/cumm Hgb (13.5-17.5) g/dL Hct (40.0-50.0) % VBG pCO2 (34-47) mm/Hg VBG HCO3 (22-28) mmol/L VBG Base Excess (-3-3) mmol/L Sodium (136-145) mmol/L Chloride 108 H (98-107) mmol/L BUN 21 H D (7-18) mg/dL Creatinine (0.70-1.30) mg/dL Glucose 214 H D (74-106) mg/dL Lactate (0.6-1.4) mmol/L Calcium 7.7 L (8.5-10.1) mg/dL Phosphorus (2.6-4.7) mg/dL Magnesium 1.2 L (1.8-2.4) mg/dL Alkaline Phosphatase (46-116) U/L Total Protein 5.3 L (6.4-8.2) g/dL Albumin 2.6 L (3.4-5.0) g/dL Triglycerides 167 H (<150) mg/dL HDL Cholesterol 38 L (40-60) mg/dL Urine Blood (Negative) Urine Glucose (Negative) mg/dL 02/25/19 Range/Units 06:20 RBC 3.92 L (4.50-6.00) m/cumm Hgb 12.1 L (13.5-17.5) g/dL Hct 35.2 L (40.0-50.0) % VBG pCO2 (34-47) mm/Hg VBG HCO3 (22-28) mmol/L VBG Base Excess (-3-3) mmol/L Sodium (136-145) mmol/L Chloride (98-107) mmol/L BUN (7-18) mg/dL Creatinine (0.70-1.30) mg/dL Glucose (74-106) mg/dL Lactate (0.6-1.4) mmol/L Calcium (8.5-10.1) mg/dL Phosphorus (2.6-4.7) mg/dL Magnesium (1.8-2.4) mg/dL Alkaline Phosphatase (46-116) U/L Total Protein (6.4-8.2) g/dL Albumin (3.4-5.0) g/dL Triglycerides (<150) mg/dL HDL Cholesterol (40-60) mg/dL Urine Blood (Negative) Urine Glucose (Negative) mg/dL Vital Signs Temperature 36.5 C 02/25/19 03:15 Temperature Source Tympanic 02/24/19 20:20 Pulse 81 02/25/19 01:31 Pulse 72 02/25/19 07:00 Respiratory Rate 14 02/25/19 03:15 Respiratory Effort 02/25/19 03:15 Respiratory Depth Normal 02/25/19 03:15 Respiratory Pattern Normal 02/25/19 03:15 Blood Pressure 108/63 02/25/19 03:15 Blood Pressure Mean 78 02/25/19 03:15 Blood Pressure Position Left Lateral 02/25/19 03:15 Pulse Oximetry 98 02/25/19 07:00 Oxygen Delivery Method Room Air 02/25/19 03:15 Oxygen Flow Rate 0 02/25/19 03:15 Pain Level 0 02/25/19 03:15 Comment 02/24/19 19:31 Intake & Output 02/24/19 02/24/19 02/25/19 11:59 23:59 11:59 Intake Total 2938.516 / 2938.516 2446.667 / 2446.667 Output Total 1350 / 1850 1700 / 1700 Balance 1588.516 / 1088.516 746.667 / 746.667 Weight 67.7 kg 67.8 kg Intake: IV 2938.516 / 2938.516 1966.667 / 1966.667 Oral 480 / 480 Output: Urine 1350 / 1850 1700 / 1700 Other: Urine Color Pale Pale Yellow Yellow Urine Appearance Clear Clear Urine Odor None Strong Comment voiding pale yellow urine voiding pale yellow urine to urinal at bedside Voiding Methods Urinal Urinal Laboratory Results WBC 6.83 k/cumm (4.4-10.8) 02/25/19 06:20 RBC 3.92 m/cumm (4.50-6.00) L 02/25/19 06:20 Hgb 12.1 g/dL (13.5-17.5) L 02/25/19 06:20 Hct 35.2 % (40.0-50.0) L 02/25/19 06:20 MCV 89.8 fL (80-95) 02/25/19 06:20 MCH 30.9 pg (27.0-33.0) 02/25/19 06:20 MCHC 34.4 g/dL (32.0-36.0) 02/25/19 06:20 RDW 13.0 % (11.8-14.1) 02/25/19 06:20 Plt Count 210 x1000/uL (130-400) 02/25/19 06:20 MPV 10.4 fL (8.0-11.0) 02/25/19 06:20 Immature Gran % 0.2 % 02/24/19 15:10 Neutrophils % 73.2 02/24/19 15:10 Lymphocytes % 17.2 02/24/19 15:10 Monocytes % 6.5 02/24/19 15:10 Eosinophils % 2.2 02/24/19 15:10 Basophils % 0.7 02/24/19 15:10 Absolute Neutrophils 6.01 k/cumm (1.2-6.7) 02/24/19 15:10 Absolute Lymphocytes 1.41 k/cumm (1.2-3.4) 02/24/19 15:10 Absolute Monocytes 0.53 k/cumm (0.11-0.7) 02/24/19 15:10 Absolute Eosinophils 0.18 k/cumm (0.0-0.7) 02/24/19 15:10 Absolute Basophils 0.06 k/cumm (0.0-0.2) 02/24/19 15:10 VBG pH 7.42 (7.35-7.45) 02/24/19 15:10 VBG pCO2 49 mm/Hg (34-47) H 02/24/19 15:10 VBG pO2 38 mm/Hg (28-44) 02/24/19 15:10 VBG HCO3 31 mmol/L (22-28) H 02/24/19 15:10 VBG Total CO2 28 mmol/L (22-29) 02/24/19 15:10 VBG O2 Saturation 71 % (70-80) 02/24/19 15:10 VBG Base Excess 6.8 mmol/L (-3-3) H 02/24/19 15:10 Sodium 142 mmol/L (136-145) 02/25/19 06:20 Sodium 144 mmol/L (136-145) 02/25/19 06:20 Potassium 3.7 mmol/L (3.5-5.1) 02/25/19 06:20 Potassium 3.7 mmol/L (3.5-5.1) 02/25/19 06:20 Chloride 107 mmol/L (98-107) 02/25/19 06:20 Chloride 108 mmol/L (98-107) H 02/25/19 06:20 Carbon Dioxide 27.2 mmol/L (21.0-32.0) 02/25/19 06:20 Carbon Dioxide 29.4 mmol/L (21.0-32.0) 02/25/19 06:20 Anion Gap 6.6 mmol/L (3-11) 02/25/19 06:20 Anion Gap 7.8 mmol/L (3-11) 02/25/19 06:20 BUN 21 mg/dL (7-18) H 02/25/19 06:20 BUN 21 mg/dL (7-18) H D 02/25/19 06:20 Creatinine 1.09 mg/dL (0.70-1.30) D 02/25/19 06:20 Creatinine 1.10 mg/dL (0.70-1.30) 02/25/19 06:20 Estimated GFR/1.73 m2 >= 60.00 (mL/min/1.73m2) 02/25/19 06:20 Estimated GFR/1.73 m2 >= 60.00 (mL/min/1.73m2) 02/25/19 06:20 Glucose 214 mg/dL (74-106) H 02/25/19 06:20 Glucose 214 mg/dL (74-106) H D 02/25/19 06:20 Lactate 0.7 mmol/L (0.6-1.4) 02/25/19 06:20 Calcium 7.6 mg/dL (8.5-10.1) L 02/25/19 06:20 Calcium 7.7 mg/dL (8.5-10.1) L 02/25/19 06:20 Phosphorus 2.4 mg/dL (2.6-4.7) L 02/25/19 06:20 Magnesium 1.2 mg/dL (1.8-2.4) L 02/25/19 06:20 Total Bilirubin 0.2 mg/dL (0.2-1.0) 02/25/19 06:20 AST 19 U/L (15-37) 02/25/19 06:20 ALT 21 U/L (16-63) 02/25/19 06:20 Alkaline Phosphatase 83 U/L (46-116) 02/25/19 06:20 Troponin I < 0.05 ng/Ml (<0.06) 02/24/19 23:55 Total Protein 5.3 g/dL (6.4-8.2) L 02/25/19 06:20 Albumin 2.6 g/dL (3.4-5.0) L 02/25/19 06:20 Albumin 2.6 g/dL (3.4-5.0) L 02/25/19 06:20 Triglycerides 167 mg/dL (<150) H 02/25/19 06:20 Total Cholesterol 163 mg/dL (<200) 02/25/19 06:20 LDL Cholesterol, Calc 92 mg/dL 02/25/19 06:20 HDL Cholesterol 38 mg/dL (40-60) L 02/25/19 06:20 TSH 1.73 uIU/mL (0.36-3.74) 02/24/19 18:44 Urine Color Yellow (Yellow) 02/24/19 16:00 Urine Clarity Clear (Clear) 02/24/19 16:00 Urine pH 7.0 (5-8) 02/24/19 16:00 Ur Specific [place] 1.015 (1.005-1.025) 02/24/19 16:00 Urine Protein Negative mg/dL (Negative) 02/24/19 16:00 Urine Ketones Negative mg/dL (Negative) 02/24/19 16:00 Urine Blood Trace-intact (Negative) H 02/24/19 16:00 Urine Nitrite Negative (Negative) 02/24/19 16:00 Urine Bilirubin Negative (Negative) 02/24/19 16:00 Urine Urobilinogen 0.2 EU/dL (Up TO 0.2) 02/24/19 16:00 Ur Leukocyte Esterase Negative (Negative) 02/24/19 16:00 Urine RBC 0-2 HPF (0-2) 02/24/19 16:00 Urine WBC Negative HPF (0-5) 02/24/19 16:00 Ur Epithelial Cells Negative HPF (Negative) 02/24/19 16:00 Urine Crystals Negative HPF (Negative) 02/24/19 16:00 Urine Bacteria Rare HPF (Negative) 02/24/19 16:00 Urine Casts Negative LPF (Negative) 02/24/19 16:00 Urine Mucus Negative (Negative) 02/24/19 16:00 Ur Culture Indicated? No 02/24/19 16:00 Urine Glucose 500 mg/dL (Negative) H 02/24/19 16:00
[2019-02-25] MEDS: Insulin NPH-Human 300 UNITS/3 ML PEN 10 UNIT SC (10:17)
[2019-02-25] MEDS: MAGNESIUM SULFATE 4 GM/100 ML BAG IVPB (10:35)
--- NOTE | 2019-02-25 12:31 | W.NUTCONSULT ---
Date of service: 02/25/19 Time of Service: 12:32 Nutritional Consult ASSESSMENT: 68 year old male admitted with chest pain. PMH: uncontrolled diabetes, HTN, CKD. reports cannot afford diabetes medication. DM consult pending with CDE. Following CHO diet with excellent intake. BMI wnl for age. At high nutritional risk in view of poorly controlled diabetes. To be referred to outpatient diabetes counseling. INTERVENTION: Dm consult MONITORING AND EVALUATION: po intake, weight and blood sugar trends Time Spent in Nutritional Counseling and Treatment: 0 time spent face to face
[2019-02-25] MEDS: Insulin REGULAR-Human 100 UNITS/ML UNIT SC ×2 (12:55→18:39)
--- NOTE | 2019-02-25 13:04 | INITIAL_ITS ---
Care Management Initial Assess REASON FOR HOSPITALIZATION:: Hyperglycemia with HHNV, Atypical Chest Pain PAST MEDICAL HISTORY/PAST SURGICAL HISTORY:: HTN, Uncontrolled type 2 DM with CKD PREVIOUS FUNCTIONAL STATUS/SOCIAL/FAMILY SUPPORTS:: Cameron is currently homeless and paying out of pocket for a room at the [facility]. He reports he is paying 60/night. Cameron is on Social Security income only and has MCR and VPHARM though he is confused if he still has coverage because he was unable to fill his prescriptions recently due to over $300 co-pay. He was previously a grocer and wrestling coach sports locally and has connections with a local yarsani. He reports being connected to multiple services in the community and states one just sends me to the other which sends me to another. He reports saving money for a down payment but being unable to secure housing and shares concerns that he does not have sufficent income to support housing and utilities and medications costs on his own. He reports being able bodied and thankful that he is able to walk my legs are still good for a diabetic. CURRENT FUNCTIONAL STATUS:: Cameron is lying in his bed in the ICU, forthcoming with information and pleasant in interaction. ADVANCE DIRECTIVES:: None on file. Has patient been provided with information about the portal?: No Did the patient sign up for the portal?: No CODE STATUS:: Full Code INSURANCE COVERAGE / FINANCIAL ISSUES:: MCR. ANA MARIA: [facility] only CURRENT HOME/COMMUNITY SERVICES/EQUIPMENT:: Cameron reports speaking with multiple agencies including his PCP, Carole Clarke, [facility], [facility], [employer] (had voucher previously and out of days), [facility]. He reports no current consistent service attachment. PRIMARY CARE PHYSICIAN:: Pal Luo POTENTIAL DISCHARGE NEEDS:: Request for care coordination meeting; service connection, service planning. Cameron requires affordable stable housing to ensure he can manage his needed insulin to survive as well as being able to afford healthy food (or MOW), and basic utilities. PATIENT/FAMILY EDUCATION NEEDS:: Review of community based supports, financial and eligibility barriers, discuss Ask Me Three. ANTICIPATED BARRIERS TO DISCHARGE:: None identified. TRANSPORTATION:: [facility] PLAN:: Cameron will return to the [facility] when ready per MD. Anticipate community based referrals for insurance support/navigation, prescription support (cost and regimine planning), stable housing/funding to remain at [facility], Chronic Sales And Marketing Analyst and certified wellness program coordinator at [facility] request for care coordination/service planning.
--- NOTE | 2019-02-25 18:02 | DM INPTCON_ITS ---
DESCRIPTION/ASSESSMENT: Appreciate diabetes consult for Mr. Solitario who is hospitalized with [facility]. BMI 24 Reports last A1c last week was 14 Mr. Pacheco states he has not been taking his usual insulin for a period of time because in February the cost jumped to $300+. He reports being in [place] living under a bridge, no way to store his insulin or administer accurately and safely. Here Blood sugars recovered overnight on insulin drip now given 15u NPH twice daily and moderate insulin correction. Mr. Pacheco recognizes/admits he may if he does not begin to take care of his diabetes. Denies numbness in feet but has excessive thirst and urination. He understands he needs to get on a regimen of self care. He remembers seeing me years ago for DSME and would like to come back in as an outpatient. INTERVENTION: Will follow blood sugars and support the self management plan for discharge. Given his new insulin regimen, will see how this does and follow up as desired. He would prefer to wait for further education at this time. PLAN: Follow blood sugars and f/u as outpatient per his desire for ongoing self management support.
[2019-02-25] MEDS: Insulin NPH-Human 300 UNITS/3 ML PEN 15 UNIT SC (18:40)
[2019-02-25] MEDS: Enoxaparin 40 MG/0.4 ML SYR SC (21:23)
[2019-02-25] MEDS: Magnesium Gluconate 500 MG TAB PO (21:25)
[2019-02-26] VITALS (9 sets, daily range): BP systolic 122–154; BP diastolic 63–88; PULSE 72–84; RESP 14–19; TEMP 36.3–37; O2SAT 95–99
[2019-02-26 07:53] LABS: Anion Gap 8.1 mmol/L (3-11); BUN 21 mg/dL (7-18); CO2 27.9 mmol/L (21.0-32.0); CREATININE 1.12 mg/dL (0.70-1.30); Calcium 8.2 mg/dL (8.5-10.1); Chloride 103 mmol/L (98-107); Glucose 287 mg/dL (74-106); Magnesium 1.5 mg/dL (1.8-2.4); Potassium 4.3 mmol/L (3.5-5.1); Sodium 139 mmol/L (136-145)
[2019-02-26 08:01] LABS: PROTEIN 10.9 mg/dL
[2019-02-26 08:03] LABS: COMMENT (LAB VIEW ONLY) 22.26 mg/dL; Prot/Crea Ur Ratio 0.48
[2019-02-26] MEDS: Aspirin 325 MG TAB PO (08:42)
[2019-02-26] MEDS: Atorvastatin 20 MG TAB PO (08:42)
[2019-02-26] MEDS: Magnesium Gluconate 500 MG TAB PO ×2 (08:42→19:47)
[2019-02-26] MEDS: Insulin NPH-Human 300 UNITS/3 ML PEN 15 UNIT SC (08:43)
[2019-02-26] MEDS: Insulin Aspart 300 UNITS/3 ML PEN SC ×4 (08:43→22:26)
[2019-02-26] MEDS: MAGNESIUM SULFATE 4 GM/100 ML BAG IVPB (11:05)
--- NOTE | 2019-02-26 14:25 | DIABASSESS_ITS ---
Date of service: 02/26/19 Time of Service: 14:25 Diabetes Note NOTE: FOllow up for Cameron Pacheco who is here with [facility] to instruct on insulin administration. He states he has a Levemir pen at home but he was not using it. He has needles but they are in storage. He has had a pen for meals but doesn't have any at this time. Invited him to set up the pen using 30units basal insulin. He vaguely recalls how to put the needle on the pen. He does not know to take the second cover off the needle, and does not remember to press the top in inject the insulin. It is unclear if he was ever getting his insulin. He did perform the steps with coaching. I believe he needs to practice self injection prior to discharge. In consultation with Dr. Montejo, I will provide insulin pen needles for him to use while here and a few to carry him through his first day at home until he can fill his prescriptions. Request that nursing supervise his injection procedure and agile coach him as needed. Upon discharge with his prescriptions for insulin pens he will need pen needles. He will also need a new glucometer, strips and lancets. He states he can test how blood sugars independently. Will follow up with him in the morning. Time Spent in Nutritional Counseling and Treatment: 20 minutes face to face
--- NOTE | 2019-02-26 14:44 | W.PM.PROGNOT ---
Date of Service Date of service: 02/26/19 Time of Service: 14:44 Assessment and Plan Assessment and plan (1) HHNC (hyperglycemic hyperosmolar nonketotic coma): Status: Resolved Assessment and plan: Checked with care management - patient's prescription coverage has been activated. We will attempt to transition him back to levemir/humalog. I think it is safe to try him on levemir 20 units HS and 8 units of humalog with meals. Will verify coverage with his pharmacy. (2) Uncontrolled type 2 diabetes mellitus with chronic kidney disease: Status: Acute Assessment and plan: A1C of 14.0. As above. Continues to require further teaching on use of insulin pens. Not ready for discharge home today. (3) Atypical chest pain: Status: Acute Assessment and plan: [place] records reviewed - he had a cardiac CTA there which put him between the 90th and 95th percentile as far as calcium score for his age; however, due to anticipated noncompliance with plavix, no intervention was undertaken on that admission. He was discharged on aspirin 81 mg PO daily, atorvastatin 80 mg PO HS, plavix 75 mg PO daily, and nitroglycerin 0.5 mg SL prn. I have to agree with above management and will initiate the therapy here - however, my index of suspicion of noncompliance is also very high. (4) CKD (chronic kidney disease): Status: Chronic Assessment and plan: Stage I-II. Cr at baseline. Continue blood sugar control. Qualifiers: Chronic kidney disease stage: stage 2 (mild) Qualified Code(s): N18.2 - Chronic kidney disease, stage 2 (mild) (5) HTN (hypertension): Status: Chronic Assessment and plan: BP's labile here. Would not start on an antihypertensive regimen. Qualifiers: Hypertension type: essential hypertension Qualified Code(s): I10 - Essential (primary) hypertension (6) Discharge planning issues: Status: Acute Assessment and plan: Patient does have a motel to go back to - his major barrier for discharge is ability to self-inject insulin. Continue to work with nursing/diabetes education on learning how to work with insulin pens. We are verifying insurance coverage on the above basal bolus regimen. We are also going to verify coverage of the remainder of his medications. (aspirin, statin, plavix, nitroglycerin). Subjective Subjective Interval history since last seen: Mr Solitario denies dizziness, chest pain, shortness of breath, nausea, vomiting. He has met with the logistics project manager today, who felt very uncomfortable with Mr Solitario's technique using pens. He is felt to require more teaching. The patient himself is aware of not knowing how to use them. He also does not know doses of insulin he was supposed to take - he cannot tell me what he got discharged on from [facility] just 6 months ago. Exam Narrative Exam Narrative: General: Very pleasant, forgetful male, sitting comfortably at the edge of the bed HEENT: EOMI, MMM Heart: RRR, no m/r/g Lungs: CTAB Abdomen: soft, nontender, nondistended Extremities: no e/c/c BLE's Objective Objective Clinical Data: Abnormal lab results 02/26/19 02/26/19 Range/Units 06:30 06:30 BUN 21 H (7-18) mg/dL Glucose 287 H (74-106) mg/dL Hemoglobin A1c 14.0 H (3.8-5.6) % Calcium 8.2 L (8.5-10.1) mg/dL Magnesium 1.5 L (1.8-2.4) mg/dL Vital Signs Temperature 36.7 C 02/26/19 07:35 Temperature Source Tympanic 02/26/19 07:35 Pulse 77 02/26/19 07:35 Pulse Rhythm Regular 02/26/19 00:00 Pulse 77 02/25/19 16:01 Respiratory Rate 19 02/26/19 07:35 Respiratory Effort Non-Labored 02/26/19 00:00 Respiratory Depth Normal 02/26/19 00:00 Respiratory Pattern Normal 02/26/19 00:00 Blood Pressure 151/88 H 02/26/19 07:35 Blood Pressure Mean 77 02/25/19 16:20 Blood Pressure Position Supine 02/25/19 16:20 Pulse Oximetry 99 02/26/19 07:35 Oxygen Delivery Method Room Air 02/26/19 07:35 Oxygen Flow Rate 0 02/26/19 07:35 Pain Level 0 02/26/19 07:35 Comment 02/24/19 19:31 Intake & Output 02/25/19 02/26/19 02/26/19 23:59 11:59 23:59 Intake Total 420 / 2866.667 500 / 500 Output Total 1025 / 3825 1800 / 1800 Balance -605 / -958.333 -1300 / -1300 Weight 55.9 kg Intake: Oral 420 / 900 500 / 500 Output: Urine 1025 / 3825 1800 / 1800 Other: Urine Color Yellow Pale Yellow Urine Appearance Clear Clear Urine Odor None Normal Comment urine light yellow, clear Voiding Methods Toilet Urinal Laboratory Results WBC 6.83 k/cumm (4.4-10.8) 02/25/19 06:20 RBC 3.92 m/cumm (4.50-6.00) L 02/25/19 06:20 Hgb 12.1 g/dL (13.5-17.5) L 02/25/19 06:20 Hct 35.2 % (40.0-50.0) L 02/25/19 06:20 MCV 89.8 fL (80-95) 02/25/19 06:20 MCH 30.9 pg (27.0-33.0) 02/25/19 06:20 MCHC 34.4 g/dL (32.0-36.0) 02/25/19 06:20 RDW 13.0 % (11.8-14.1) 02/25/19 06:20 Plt Count 210 x1000/uL (130-400) 02/25/19 06:20 MPV 10.4 fL (8.0-11.0) 02/25/19 06:20 Immature Gran % 0.2 % 02/24/19 15:10 Neutrophils % 73.2 02/24/19 15:10 Lymphocytes % 17.2 02/24/19 15:10 Monocytes % 6.5 02/24/19 15:10 Eosinophils % 2.2 02/24/19 15:10 Basophils % 0.7 02/24/19 15:10 Absolute Neutrophils 6.01 k/cumm (1.2-6.7) 02/24/19 15:10 Absolute Lymphocytes 1.41 k/cumm (1.2-3.4) 02/24/19 15:10 Absolute Monocytes 0.53 k/cumm (0.11-0.7) 02/24/19 15:10 Absolute Eosinophils 0.18 k/cumm (0.0-0.7) 02/24/19 15:10 Absolute Basophils 0.06 k/cumm (0.0-0.2) 02/24/19 15:10 VBG pH 7.42 (7.35-7.45) 02/24/19 15:10 VBG pCO2 49 mm/Hg (34-47) H 02/24/19 15:10 VBG pO2 38 mm/Hg (28-44) 02/24/19 15:10 VBG HCO3 31 mmol/L (22-28) H 02/24/19 15:10 VBG Total CO2 28 mmol/L (22-29) 02/24/19 15:10 VBG O2 Saturation 71 % (70-80) 02/24/19 15:10 VBG Base Excess 6.8 mmol/L (-3-3) H 02/24/19 15:10 Sodium 139 mmol/L (136-145) 02/26/19 06:30 Potassium 4.3 mmol/L (3.5-5.1) 02/26/19 06:30 Chloride 103 mmol/L (98-107) 02/26/19 06:30 Carbon Dioxide 27.9 mmol/L (21.0-32.0) 02/26/19 06:30 Anion Gap 8.1 mmol/L (3-11) 02/26/19 06:30 BUN 21 mg/dL (7-18) H 02/26/19 06:30 Creatinine 1.12 mg/dL (0.70-1.30) 02/26/19 06:30 Estimated GFR/1.73 m2 >= 60.00 (mL/min/1.73m2) 02/26/19 06:30 Glucose 287 mg/dL (74-106) H 02/26/19 06:30 Hemoglobin A1c 14.0 % (3.8-5.6) H 02/26/19 06:30 Lactate 0.7 mmol/L (0.6-1.4) 02/25/19 06:20 Calcium 8.2 mg/dL (8.5-10.1) L 02/26/19 06:30 Phosphorus 2.4 mg/dL (2.6-4.7) L 02/25/19 06:20 Magnesium 1.5 mg/dL (1.8-2.4) L 02/26/19 06:30 Total Bilirubin 0.2 mg/dL (0.2-1.0) 02/25/19 06:20 AST 19 U/L (15-37) 02/25/19 06:20 ALT 21 U/L (16-63) 02/25/19 06:20 Alkaline Phosphatase 83 U/L (46-116) 02/25/19 06:20 Troponin I < 0.05 ng/Ml (<0.06) 02/24/19 23:55 Total Protein 5.3 g/dL (6.4-8.2) L 02/25/19 06:20 Albumin 2.6 g/dL (3.4-5.0) L 02/25/19 06:20 Albumin 2.6 g/dL (3.4-5.0) L 02/25/19 06:20 Triglycerides 167 mg/dL (<150) H 02/25/19 06:20 Total Cholesterol 163 mg/dL (<200) 02/25/19 06:20 LDL Cholesterol, Calc 92 mg/dL 02/25/19 06:20 HDL Cholesterol 38 mg/dL (40-60) L 02/25/19 06:20 TSH 1.73 uIU/mL (0.36-3.74) 02/24/19 18:44 Urine Color Yellow (Yellow) 02/24/19 16:00 Urine Clarity Clear (Clear) 02/24/19 16:00 Urine pH 7.0 (5-8) 02/24/19 16:00 Ur Specific [place] 1.015 (1.005-1.025) 02/24/19 16:00 Urine Protein Negative mg/dL (Negative) 02/24/19 16:00 Urine Ketones Negative mg/dL (Negative) 02/24/19 16:00 Urine Blood Trace-intact (Negative) H 02/24/19 16:00 Urine Nitrite Negative (Negative) 02/24/19 16:00 Urine Bilirubin Negative (Negative) 02/24/19 16:00 Urine Urobilinogen 0.2 EU/dL (Up TO 0.2) 02/24/19 16:00 Ur Leukocyte Esterase Negative (Negative) 02/24/19 16:00 Urine RBC 0-2 HPF (0-2) 02/24/19 16:00 Urine WBC Negative HPF (0-5) 02/24/19 16:00 Ur Epithelial Cells Negative HPF (Negative) 02/24/19 16:00 Urine Crystals Negative HPF (Negative) 02/24/19 16:00 Urine Bacteria Rare HPF (Negative) 02/24/19 16:00 Urine Casts Negative LPF (Negative) 02/24/19 16:00 Urine Mucus Negative (Negative) 02/24/19 16:00 Ur Culture Indicated? No 02/24/19 16:00 Ur Random Creatinine 22.26 mg/dL 02/26/19 06:50 U Random Total Protein 10.9 mg/dL 02/26/19 06:50 U [place] Prot/Creat Ratio 0.48 02/26/19 06:50 Urine Glucose 500 mg/dL (Negative) H 02/24/19 16:00
[2019-02-26] MEDS: Insulin Aspart 300 UNITS/3 ML PEN 8 UNITS SC (17:31)
--- NOTE | 2019-02-26 18:03 | CMPROGNOTE_ITS ---
- If Service Date Differs Date of service: 02/26/19 Time of Service: 18:03 Care Management Progress Note S/O: Cameron was lying in bed when CM met with him. He reported that he met with the technical project coordinator today, who gave him some supplies. He was transferred to [facility] level of care. He reported that he will need assistance coordinating a ride with RCT to return to the [facility] when he is ready to be discharged. He stated that he has a few more days already paid for at the [facility]. He stated that he has a couple of options for staying with friends in the area if he can no longer stay at the [facility]. He reported that he has had diabetes for many years and he knows that he needs to take better care of himself. CM will continue to follow. A: Cameron is a 68 year old male admitted to [facility] on 02/24/2019 for Hyperglycemia with HHNV, Atypical chest pain. P: Anticipate Cameron will return to the [facility] when medically cleared. Anticipate community based referrals for insurance support/navigation, prescription support (cost and regimine planning), stable housing/funding to remain at [facility], Chronic Excellence Consultant and advertising operations coordinator at [facility] request for care coordination/service planning.
--- NOTE | 2019-02-26 18:03 | PDOC.CMPRO ---
- If Service Date Differs Date of service: 02/26/19 Time of Service: 18:03 Care Management Progress Note S/O: Cameron was lying in bed when CM met with him. He reported that he met with the health educator today, who gave him some supplies. He was transferred to [facility] level of care. He reported that he will need assistance coordinating a ride with RCT to return to the [facility] when he is ready to be discharged. He stated that he has a few more days already paid for at the [facility]. He stated that he has a couple of options for staying with friends in the area if he can no longer stay at the [facility]. He reported that he has had diabetes for many years and he knows that he needs to take better care of himself. CM will continue to follow. A: Cameron is a 68 year old male admitted to [facility] on 02/24/2019 for Hyperglycemia with HHNV, Atypical chest pain. P: Anticipate Cameron will return to the [facility] when medically cleared. Anticipate community based referrals for insurance support/navigation, prescription support (cost and regimine planning), stable housing/funding to remain at [facility], Chronic Management Trainee Program Stores and special services coordinator at [facility] request for care coordination/service planning.
[2019-02-26] MEDS: Atorvastatin 40 MG TAB 80 MG PO (19:48)
[2019-02-26] MEDS: Enoxaparin 40 MG/0.4 ML SYR SC (22:26)
[2019-02-27 07:00] VITALS: PULSE 72
[2019-02-27 07:13] LABS: Anion Gap 7.6 mmol/L (3-11); BUN 22 mg/dL (7-18); CO2 30.4 mmol/L (21.0-32.0); CREATININE 1.11 mg/dL (0.70-1.30); Calcium 8.7 mg/dL (8.5-10.1); Chloride 104 mmol/L (98-107); Glucose 121 mg/dL (74-106); Magnesium 1.6 mg/dL (1.8-2.4); Potassium 3.9 mmol/L (3.5-5.1); Sodium 142 mmol/L (136-145)
[2019-02-27 07:40] VITALS: BP 150/91; PULSE 86; RESP 18; TEMP 37.1; O2SAT 98
[2019-02-27] MEDS: Clopidogrel 75 MG TAB PO (09:00)
[2019-02-27] MEDS: MAGNESIUM SULFATE 4 GM/100 ML BAG IVPB (09:00)
[2019-02-27] MEDS: Aspirin E.C. 81 MG TABEC PO (09:00)
[2019-02-27] MEDS: Magnesium Oxide 400 MG TAB PO ×2 (11:03→20:42)
--- NOTE | 2019-02-27 11:07 | W.DIABETESNO ---
Date of service: 02/27/19 Time of Service: 11:07 Diabetes Note NOTE: Follow up instruction on use of insulin pen administration prior to his being discharged. He does not remember if he has tried to give himself an injection since yesterday afternoon. Observed his use of the insulin pen. He did need coaching the first try. He is given the following written instructions: INSULIN FOR MUKUND GUEVARA BEFORE Each MEAL 1 Test blood sugar (if possible) 2 Take off 2 caps ? outer cap and small inner cap 3 Dial pen to 8 units 4 Push into skin and press button to give insulin 5 Hold 10 seconds 6 Use outer cap to screw off the needle [address] needle in plastic container BEFORE BED: Follow above except dial pen to 20 units OTHER THINGS to THINK ABOUT: Always carry sugar (hard candy, 4 sugar packets, 4 glucose tablets) in case your blood sugar is low. At home have juice (1/2 cup) or saltines (6 crackers) if blood sugar is low. If you do not eat carbohydrate with your meal (bread, cereal, pasta, potato, rice, fruit, etc.) do not take the mealtime insulin. Following the written instructions he is able to administer his insulin into a pillow following outline. If he is not able to get the insulin in pen form, will return for further instruction on needle and syringe insulin delivery. At this time he voices correct insulin dosing for meals versus bedtime. If he goes home with the pens from his hospital stay, please write NIGHT on Levemir/Lantus pen and write MEAL on Novolog. Time Spent in Nutritional Counseling and Treatment: 25 minutes face to face
[2019-02-27 12:07] VITALS: PULSE 87
[2019-02-27] MEDS: Insulin Aspart 300 UNITS/3 ML PEN SC ×3 (12:07→22:20)
[2019-02-27] MEDS: Insulin Aspart 300 UNITS/3 ML PEN 8 UNITS SC ×2 (12:08→17:21)
[2019-02-27 15:25] VITALS: BP 156/88; PULSE 80; RESP 19; TEMP 36.9; O2SAT 97
--- NOTE | 2019-02-27 16:05 | PDOC.CMPRO ---
- If Service Date Differs Date of service: 02/27/19 Time of Service: 16:05 Care Management Progress Note S/O: CM met with Cameron while he was sitting up in bed. He reported feeling better. Per MD, Cameron will need diabetes supplies as well as access to medications prior to discharge. CM contacted his pharmacy to inquire about copays. His pharmacy did not have his MCR part D plan information. CM called access, who also did not have his MCR part D prescription card on file. CM met with Cameron again and assisted him with signing up for an account on [email or web address] in order to access the information needed to have his prescriptions covered. With his MCR part D and [facility], his copays were drastically reduced, but still around $30. CM sent a referral to [employer] to ask if they can assist with Cameron's copays, as well as wrap around support in the community. CM will continue to follow. A: Cameron is a 68 year old male admitted to [facility] on 02/24/2019 for Hyperglycemia with HHNV, Atypical chest pain. P: Anticipate Cameron will return to the [facility] when medically cleared. Community based referrals sent to [facility] for insurance support/navigation, prescription support (cost and regimine planning), stable housing/funding to remain at [facility]. Chronic Harbor Master and environmental services coordinator at [facility] request for care coordination/service planning. CM will coordinate [facility] private vehicle transportation when ready. CM will continue to follow.
--- NOTE | 2019-02-27 16:22 | PGE_ITS ---
Date of Service Date of service: 02/27/19 Time of Service: 16:22 Assessment and Plan Assessment and plan (1) HHNC (hyperglycemic hyperosmolar nonketotic coma): Status: Resolved Assessment and plan: As above - prescription for insulin will be covered. Continue levemir 20 units HS and 8 units of humalog with meals. Plan for discharge home tomorrow with new meter/strips/lancets and insulin pens after meeting with community connections. (2) Uncontrolled type 2 diabetes mellitus with chronic kidney disease: Status: Acute Assessment and plan: A1C of 14.0. As above. (3) Atypical chest pain: Status: Acute Assessment and plan: Continue aspirin 81 mg PO daily, atorvastatin 80 mg PO HS, plavix 75 mg PO daily, and nitroglycerin 0.5 mg SL prn. My index of susp icion of noncompliance is also very high. (4) CKD (chronic kidney disease): Status: Chronic Assessment and plan: Stage I-II. Cr at baseline. Continue blood sugar control. Qualifiers: Chronic kidney disease stage: stage 2 (mild) Qualified Code(s): N18.2 - Chronic kidney disease, stage 2 (mild) (5) HTN (hypertension): Status: Chronic Assessment and plan: BP's labile here. Not to overwhelm the patient, if he is still hypertensive on his follow up with PCP, nida-i should be started as outpatient. Qualifiers: Hypertension type: essential hypertension Qualified Code(s): I10 - Essential (primary) hypertension (6) Discharge planning issues: Status: Acute Assessment and plan: Plan for discharge home tomorrow after meeting with community connections. Subjective Subjective Interval history since last seen: Mr Solitario is doing well. Denies dizziness, chest pain, shortness of breath, nausea, vomiting. FBG 102. Did not get meal time insulin for breakfast - we do not know why at this time. Lung blood sugar was 247. He was able to demonstrate to the environmental educator better technique with using his insulin pens. He feels more comfortable with pens now than he does with syringes/vials. We were able to verify his insurance coverage, and all of his medications, including his insulins, will cost him less than $30 per month - however, he does not have these resources at this time. His pharmacy cannot get him a meter/strips until tomorrow. [facility] will meet with the patient tomorrow to help set up financial assistance this month. Exam Narrative Exam Narrative: General: Very pleasant, forgetful male, laying comfortably in bed. HEENT: EOMI, MMM Heart: RRR, no m/r/g Lungs: CTAB Abdomen: soft, nontender, nondistended Extremities: no e/c/c BLE's Objective Objective Clinical Data: Abnormal lab results 02/27/19 Range/Units 06:45 BUN 22 H (7-18) mg/dL Glucose 121 H D (74-106) mg/dL Magnesium 1.6 L (1.8-2.4) mg/dL Vital Signs Temperature 37.1 C 02/27/19 07:40 Temperature Source Tympanic 02/27/19 07:40 Pulse 87 02/27/19 12:07 Pulse Rhythm Regular 02/27/19 15:35 Pulse 77 02/25/19 16:01 Respiratory Rate 18 02/27/19 07:40 Respiratory Effort Non-Labored 02/27/19 15:35 Respiratory Depth Normal 02/27/19 15:35 Respiratory Pattern Normal 02/27/19 15:35 Blood Pressure 150/91 H 02/27/19 07:40 Blood Pressure Mean 77 02/25/19 16:20 Blood Pressure Position Supine 02/25/19 16:20 Pulse Oximetry 98 02/27/19 07:40 Oxygen Delivery Method Room Air 02/27/19 07:40 Oxygen Flow Rate 0 02/27/19 07:40 Pain Level 3 02/27/19 07:40 Comment 02/24/19 19:31 Intake & Output 02/26/19 02/27/19 02/27/19 23:59 11:59 23:59 Intake Total 240 / 740 1450 / 1700 250 / 1700 Output Total 1000 / 3450 825 / 1425 600 / 1425 Balance -760 / -2710 625 / 275 -350 / 275 Weight 59 kg Intake: Oral 240 / 740 1450 / 1700 250 / 1700 Output: Urine 1000 / 3450 825 / 1425 600 / 1425 Other: Urine Color Pale Yellow Yellow Yellow Urine Appearance Clear Clear Clear Urine Odor Normal Normal None Stool Size Small Stool Characteristics Liquid Voiding Methods Urinal Urinal Urinal Laboratory Results WBC 6.83 k/cumm (4.4-10.8) 02/25/19 06:20 RBC 3.92 m/cumm (4.50-6.00) L 02/25/19 06:20 Hgb 12.1 g/dL (13.5-17.5) L 02/25/19 06:20 Hct 35.2 % (40.0-50.0) L 02/25/19 06:20 MCV 89.8 fL (80-95) 02/25/19 06:20 MCH 30.9 pg (27.0-33.0) 02/25/19 06:20 MCHC 34.4 g/dL (32.0-36.0) 02/25/19 06:20 RDW 13.0 % (11.8-14.1) 02/25/19 06:20 Plt Count 210 x1000/uL (130-400) 02/25/19 06:20 MPV 10.4 fL (8.0-11.0) 02/25/19 06:20 Immature Gran % 0.2 % 02/24/19 15:10 Neutrophils % 73.2 02/24/19 15:10 Lymphocytes % 17.2 02/24/19 15:10 Monocytes % 6.5 02/24/19 15:10 Eosinophils % 2.2 02/24/19 15:10 Basophils % 0.7 02/24/19 15:10 Absolute Neutrophils 6.01 k/cumm (1.2-6.7) 02/24/19 15:10 Absolute Lymphocytes 1.41 k/cumm (1.2-3.4) 02/24/19 15:10 Absolute Monocytes 0.53 k/cumm (0.11-0.7) 02/24/19 15:10 Absolute Eosinophils 0.18 k/cumm (0.0-0.7) 02/24/19 15:10 Absolute Basophils 0.06 k/cumm (0.0-0.2) 02/24/19 15:10 VBG pH 7.42 (7.35-7.45) 02/24/19 15:10 VBG pCO2 49 mm/Hg (34-47) H 02/24/19 15:10 VBG pO2 38 mm/Hg (28-44) 02/24/19 15:10 VBG HCO3 31 mmol/L (22-28) H 02/24/19 15:10 VBG Total CO2 28 mmol/L (22-29) 02/24/19 15:10 VBG O2 Saturation 71 % (70-80) 02/24/19 15:10 VBG Base Excess 6.8 mmol/L (-3-3) H 02/24/19 15:10 Sodium 142 mmol/L (136-145) 02/27/19 06:45 Potassium 3.9 mmol/L (3.5-5.1) 02/27/19 06:45 Chloride 104 mmol/L (98-107) 02/27/19 06:45 Carbon Dioxide 30.4 mmol/L (21.0-32.0) 02/27/19 06:45 Anion Gap 7.6 mmol/L (3-11) 02/27/19 06:45 BUN 22 mg/dL (7-18) H 02/27/19 06:45 Creatinine 1.11 mg/dL (0.70-1.30) 02/27/19 06:45 Estimated GFR/1.73 m2 >= 60.00 (mL/min/1.73m2) 02/27/19 06:45 Glucose 121 mg/dL (74-106) H D 02/27/19 06:45 Hemoglobin A1c 14.0 % (3.8-5.6) H 02/26/19 06:30 Lactate 0.7 mmol/L (0.6-1.4) 02/25/19 06:20 Calcium 8.7 mg/dL (8.5-10.1) 02/27/19 06:45 Phosphorus 2.4 mg/dL (2.6-4.7) L 02/25/19 06:20 Magnesium 1.6 mg/dL (1.8-2.4) L 02/27/19 06:45 Total Bilirubin 0.2 mg/dL (0.2-1.0) 02/25/19 06:20 AST 19 U/L (15-37) 02/25/19 06:20 ALT 21 U/L (16-63) 02/25/19 06:20 Alkaline Phosphatase 83 U/L (46-116) 02/25/19 06:20 Troponin I < 0.05 ng/Ml (<0.06) 02/24/19 23:55 Total Protein 5.3 g/dL (6.4-8.2) L 02/25/19 06:20 Albumin 2.6 g/dL (3.4-5.0) L 02/25/19 06:20 Albumin 2.6 g/dL (3.4-5.0) L 02/25/19 06:20 Triglycerides 167 mg/dL (<150) H 02/25/19 06:20 Total Cholesterol 163 mg/dL (<200) 02/25/19 06:20 LDL Cholesterol, Calc 92 mg/dL 02/25/19 06:20 HDL Cholesterol 38 mg/dL (40-60) L 02/25/19 06:20 TSH 1.73 uIU/mL (0.36-3.74) 02/24/19 18:44 Urine Color Yellow (Yellow) 02/24/19 16:00 Urine Clarity Clear (Clear) 02/24/19 16:00 Urine pH 7.0 (5-8) 02/24/19 16:00 Ur Specific [place] 1.015 (1.005-1.025) 02/24/19 16:00 Urine Protein Negative mg/dL (Negative) 02/24/19 16:00 Urine Ketones Negative mg/dL (Negative) 02/24/19 16:00 Urine Blood Trace-intact (Negative) H 02/24/19 16:00 Urine Nitrite Negative (Negative) 02/24/19 16:00 Urine Bilirubin Negative (Negative) 02/24/19 16:00 Urine Urobilinogen 0.2 EU/dL (Up TO 0.2) 02/24/19 16:00 Ur Leukocyte Esterase Negative (Negative) 02/24/19 16:00 Urine RBC 0-2 HPF (0-2) 02/24/19 16:00 Urine WBC Negative HPF (0-5) 02/24/19 16:00 Ur Epithelial Cells Negative HPF (Negative) 02/24/19 16:00 Urine Crystals Negative HPF (Negative) 02/24/19 16:00 Urine Bacteria Rare HPF (Negative) 02/24/19 16:00 Urine Casts Negative LPF (Negative) 02/24/19 16:00 Urine Mucus Negative (Negative) 02/24/19 16:00 Ur Culture Indicated? No 02/24/19 16:00 Ur Random Creatinine 22.26 mg/dL 02/26/19 06:50 U Random Total Protein 10.9 mg/dL 02/26/19 06:50 U [place] Prot/Creat Ratio 0.48 02/26/19 06:50 Urine Glucose 500 mg/dL (Negative) H 02/24/19 16:00
[2019-02-27] MEDS: Atorvastatin 40 MG TAB 80 MG PO (20:39)
[2019-02-27 20:51] VITALS: BP 120/78; PULSE 92; RESP 16; TEMP 36.1; O2SAT 96
[2019-02-27] MEDS: Enoxaparin 40 MG/0.4 ML SYR SC (22:22)
[2019-02-27 23:43] VITALS: BP 120/73; PULSE 85; RESP 18; TEMP 37; O2SAT 97
[2019-02-28 07:20] VITALS: BP 138/82; PULSE 89; RESP 20; TEMP 36.6; O2SAT 99
[2019-02-28 07:30] VITALS: BP 138/82; PULSE 89; RESP 20; TEMP 36.6; O2SAT 99
[2019-02-28] MEDS: Magnesium Oxide 400 MG TAB PO (08:52)
[2019-02-28] MEDS: Aspirin E.C. 81 MG TABEC PO (08:52)
[2019-02-28] MEDS: Clopidogrel 75 MG TAB PO (08:52)
[2019-02-28] MEDS: Insulin Aspart 300 UNITS/3 ML PEN SC ×2 (08:53→11:43)
[2019-02-28] MEDS: Insulin Aspart 300 UNITS/3 ML PEN 8 UNITS SC ×2 (08:55→11:43)
--- NOTE | 2019-02-28 12:42 | CMDISCH_ITS ---
- If Service Date Differs Date of service: 02/28/19 Time of Service: 12:42 LACE Index Scoring Tool - Questions: Length of Stay (in days): 4 - 6 Acuity (Admit via E.D.?): Yes Comorbidities: Diabetes w/o Complication E.D. Visits: 2 - Answers: Total Score: 10 Risk of Readmission: High Risk Care Management Discharge Reason for Hospitalization: Hyperglycemia with HHNV, Atypical Chest Pain Discharge Plan: Cameron is being discharged to his current living arrangement today. He will have new medications including insulin and a glucometer. He will return to the [facility] with the expectation he will continue to work with community resources to gain access to housing. Referral to community connections for resources to assist with prescription copays. RCT to be arranged by CM transportation home and to stop at the pharmacy. Cameron has met with the DM educator multiple times during his hospital stay and states he feels that he can give himself insulin. Patient/Family Education Needs: Discharge education, limitations and follow up p clarice of care. Medication management including storage of his insulin and keeping his medicaiton safe. If he returns to the [facility] he will need to use a locker for his medications. CM has referred patient back to economic service for ongoing assistance with emergancy housing at the [facility]. Services Needed at Discharge: Transportation
--- NOTE | 2019-02-28 13:41 | W.PM.DS.N ---
Date of service: 02/28/19 Time of Service: 13:44 DS: Diagnosis Discharge Diagnosis (1) HHNC (hyperglycemic hyperosmolar nonketotic coma): Status: Resolved (2) Uncontrolled type 2 diabetes mellitus with chronic kidney disease: Status: Acute (3) Atypical chest pain: Status: Acute (4) CKD (chronic kidney disease): Status: Chronic (5) HTN (hypertension): Status: Chronic (6) CAD (coronary artery disease): Status: Suspected (7) Homelessness: Status: Acute Discharge Plan Disposition Patient Disposition: OTHER Condition: Stable Discharge Details Chief Complaint: Chest Pain Clinical Impression: Chest pain, Hyperglycemia Reason For Visit: HYPERGLYCEMIA WITH HHNC,ATYPICAL CHEST PAIN Admit Date/Time: 02/24/19 19:08 Admit Provider: Aleksandr Ho Attending Provider: Aleksandr Ho Primary Care Provider: Pal Luo ED Provider: Twila Jain Hospital Course Hospital Course: Mr Solitario is a homeless 68 year old male with PMHx of IDDM2, CAD per cardiac CTA at [facility] in 2019, hyperlipidemia, admitted to [facility] ICU under the hospitalist service on 02/24/2019 with hyperglycemia due to HHNC. He also complains of chest pain, but ruled out for acute coronary syndrome. The patient had cited having difficulties affording his insulin prescription as well as remainder of his medications, but evidently he also did not know how to properly use the insulin pens he had been prescribed as outpatient which he did have access to. The patient required a short course of insulin drip to normalize his blood sugars and was transitioned to basal bolus insulin. Regimen that seems to be working well for the patient is humalog 8 units SC AC and levemir 20 units SC HS. The patient met with the clinical unit educator several times on this admission. He was repeatedly shown how to use insulin pens and has been able to demonstrate knowledge/correct implementation of the technique by the time of discharge. The patient's prescription coverage was verified with his pharmacy. For 1 month of his medications, the patient is expected to pay less than $20. This month, the patient will not be able to afford this payment, so he is being set up with community connections for financial assistance. The patient states that in the future he thinks he will be able to afford it. Depending on patient's compliance, PCP should also consider introduction of the nida-i to patient's regimen. A this time, he is medically stable for discharge. He will need to be followed up by his PCP within 1-2 weeks. Care for patient as well as completion of his discharge summary on day of discharge took 45 minutes. Home Meds and New Rx's Prescriptions: New insulin lispro [Humalog KwikPen Insulin] 100 unit/mL insulin pen 8 unit SC QAC Qty: 15 RF: 0 clopidogrel [Plavix] 75 mg Tablet 75 mg PO DAILY Qty: 30 RF: 0 aspirin 81 mg Tablet,Delayed Release (Dr/Ec) 81 mg PO DAILY Qty: 30 RF: 0 magnesium oxide 400 mg (241.3 mg magnesium) Tablet 400 mg PO BID Qty: 60 RF: 0 nitroglycerin [Nitrostat] 0.4 mg Tablet, Sublingual 0.4 mg sublingual Q5 MIN PRN X3 PRNQty: 60 RF: 0 atorvastatin 80 mg tablet 80 mg PO QHS Qty: 30 RF: 0 (DME) FreeStyle Lite Strips Strip See Rx Instructions .ROUTE .MEDSUPPLY Qty: 100 RF: 0 (DME) blood-glucose meter [FreeStyle Lite Meter] Kit See Rx Instructions .ROUTE .MEDSUPPLY Qty: 1 RF: 0 (DME) lancets [Lancets,Thin] Misc See Rx Instructions .ROUTE .MEDSUPPLY Qty: 100 RF: 0 Changed insulin detemir U-100 100 unit/mL (3 mL) Insulin Pen 20 unit SUBCUT HS Qty: 15 RF: 0 Discontinued aspirin 325 mg Tablet 325 mg PO DAILY RF: 0 insulin aspart U-100 100 unit/mL (3 mL) Insulin Pen SUBCUT AC & HS RF: 0 Discharge Instructions Instructions: Insulin Pens (DC) Additional Instructions: Return to the hospital with any fever, bleeding, chest pain, or shortness of breath. Check your blood sugar 4 times a day (fasting, before lunch, before dinner, at bedtime), and keep a log. Bring this log to your PCP for further adjustments in insulin doses. Know signs and symptoms of hypoglycemia. Always have a sugary drink or glucose tablets on you in case of hypoglycemia. Stand Alone Forms: Nursing Discharge Form Referrals: Pal Luo NP [Primary Care Provider] - 03/14/19 7:30 am Activity:: Activity as Tolerated Equipment/Supplies:: No Equipment Needed Diet:: Carb Counting Discharge Orders Discharge Orders: Discharge Order (Routine); Ordered 02/28/19 Ordered By: Tracey Cruz DS: Summary Status at Discharge Functional status at discharge: independent ambulation Overall status at discharge: patient is back to baseline Mental Status: mental status grossly normal Speech and Movement: speech and movement normal Mood: congruent mood Affect: normal affect Exam Narrative Exam Narrative: General: Very pleasant, forgetful male, sitting up at the edge of the bed HEENT: EOMI, MMM Heart: RRR, no m/r/g Lungs: CTAB Abdomen: soft, nontender, nondistended Extremities: no e/c/c BLE's Psych Mental Status: mental status grossly normal Speech and Movement: speech and movement normal Mood: congruent mood Affect: normal affect DS: Data Vitals/I&O Vitals and I&O: Vital Signs Temperature 36.6 C 02/28/19 07:30 Temperature Source Tympanic 02/28/19 07:30 Pulse 89 02/28/19 07:30 Pulse Rhythm Regular 02/28/19 10:29 Pulse 77 02/25/19 16:01 Respiratory Rate 20 02/28/19 07:30 Respiratory Effort Non-Labored 02/28/19 10:29 Respiratory Depth Normal 02/28/19 10:29 Respiratory Pattern Normal 02/28/19 10:29 Blood Pressure 138/82 02/28/19 07:30 Blood Pressure Mean 77 02/25/19 16:20 Blood Pressure Position Supine 02/25/19 16:20 Pulse Oximetry 99 02/28/19 07:30 Oxygen Delivery Method Room Air 02/28/19 07:30 Oxygen Flow Rate 0 02/28/19 07:30 Pain Level 2 02/28/19 07:30 Comment 02/24/19 19:31 Intake & Output 02/27/19 02/28/19 02/28/19 23:59 11:59 23:59 Intake Total 1100 / 2550 240 / 240 Output Total 600 / 1425 200 / 200 Balance 500 / 1125 40 / 40 Weight 58.7 kg Intake: IV Oral 1090 / 2540 240 / 240 Output: Urine 600 / 1425 200 / 200 Other: Urine Color Yellow Yellow Urine Appearance Clear Clear Urine Odor None Normal Comment Voinding independently Voiding ad carlos Stool Size Moderate Stool Characteristics Soft Formed Voiding Methods Toilet Urinal Data Completed and Pending Completed studies during hospitalization [Text1]: CXR 02/24/2019: No acute abnormality. [facility] Medical History HTN (hypertension) (Chronic) Uncontrolled type 2 diabetes mellitus with chronic kidney disease (Acute) Social History Smoking/Tobacco Use Status: Never Alcohol Intake: never Drug use: Never Substance use type: does not use Do you feel safe at home: No (patient is homeless) Do you feel safe in your relationship?: Yes
== END 2019-02-28 14:35 | disposition other institution (70) | DRG 639 ==
LOC: ER 19:53 → ICU 20:09 → MS 02-27 10:48 → ICU 03-07 13:24
PROVIDERS: Internal Medicine; Physician Assistant; Admitting Provider Family Medicine; Emergency Provider Physician Assistant; PCP Nurse Practitioner Family; Visit Provider Internal Medicine
DX: E11.01 Type 2 diabetes mellitus with hyperosmolarity with coma (principal); R07.89 Other chest pain; T38.3X6A Underdosing of insulin and oral hypoglycemic [antidiabetic] drugs, initial encounter; Z91.120 Patient's intentional underdosing of medication regimen due to financial hardship; E86.0 Dehydration; E11.65 Type 2 diabetes mellitus with hyperglycemia; Z79.4 Long term (current) use of insulin; E11.22 Type 2 diabetes mellitus with diabetic chronic kidney disease; N18.2 Chronic kidney disease, stage 2 (mild); I12.9 Hypertensive chronic kidney disease with stage 1 through stage 4 chronic kidney disease, or unspecified chronic kidney disease; I25.10 Atherosclerotic heart disease of native coronary artery without angina pectoris; Z95.5 Presence of coronary angioplasty implant and graft; Z59.0 Homelessness; Z71.3 Dietary counseling and surveillance
CPT/HCPCS: 36415; 36416; 80048; 80053; 80061; 80069; 82805; 82962; 85027; 93005; 96361; 96365; 96366; 96372; 99223; 99232; 99233; 99239; 99285; J1650; 71046; 81003; 81015; 82565; 83036; 83605; 83735; 84156; 84443; 84484; 85025; 93010; J3475; J3490

== ENCOUNTER 2019-10-14 19:35 | Emergency (ER) | payer OTHER, SELFPAY ==
[2019-10-14 19:40] VITALS: BP 129/75; PULSE 99; RESP 16; TEMP 36.6; O2SAT 98
--- NOTE | 2019-10-14 20:12 | W.ED.GENAD ---
Discharge Plan Disposition Patient Disposition: HOME Condition: Good Discharge Details Chief Complaint: Diabetes Clinical Impression: Encounter for medical screening examination, Homelessness Primary Care Provider: Pal Luo ED Provider: Chris Harris Home Meds and New Rx's Prescriptions: Continued insulin lispro [Humalog KwikPen Insulin] 100 unit/mL insulin pen 8 unit SC QAC Qty: 15 RF: 0 insulin detemir U-100 100 unit/mL (3 mL) Insulin Pen 20 unit SUBCUT HS Qty: 15 RF: 0 clopidogrel [Plavix] 75 mg Tablet 75 mg PO DAILY Qty: 30 RF: 0 aspirin 81 mg Tablet,Delayed Release (Dr/Ec) 81 mg PO DAILY Qty: 30 RF: 0 magnesium oxide 400 mg (241.3 mg magnesium) Tablet 400 mg PO BID Qty: 60 RF: 0 nitroglycerin [Nitrostat] 0.4 mg Tablet, Sublingual 0.4 mg sublingual Q5 MIN PRN X3 PRNQty: 60 RF: 0 atorvastatin 80 mg tablet 80 mg PO QHS Qty: 30 RF: 0 (DME) FreeStyle Lite Strips Strip See Rx Instructions .ROUTE .MEDSUPPLY Qty: 100 RF: 0 (DME) blood-glucose meter [FreeStyle Lite Meter] Kit See Rx Instructions .ROUTE .MEDSUPPLY Qty: 1 RF: 0 (DME) lancets [Lancets,Thin] Misc See Rx Instructions .ROUTE .MEDSUPPLY Qty: 100 RF: 0 amlodipine-benazepril 5-10 mg capsule 1 cap PO DAILY RF: 0 Discharge Instructions Additional Instructions: At 8 this morning please call the hospital at [phone]. Ask Specifically for Kandy Ku. There is additional potential help that we may be able to find tomorrow. If you notice any worsening of your symptoms, or any new symptoms such as vomiting, diarrhea, fever, chills, shortness of breath, chest pain, numbness, weakness, or fainting , please return immediately to the emergency department for reevaluation. Please follow up with your primary care provider as soon as possible for reassessment and reevaluation. As always, it was a pleasure participating in your medical care today. Referrals: Pal Luo, ARI [Primary Care Provider] - Medical Decision Making This is a 68-year-old male with a past medical history of type 2 diabetes, hypertension, chronic kidney disease coronary artery disease and an unfortunate history of multiple episodes of homelessness. He presents today for evaluation for help with his social home status. Patient has been living in [facility] for the last few months, unfortunately he was extricated out of the place that he was living, he hitchhiked over here to [facility] for added help. Because it is a holiday weekend he was not able to immediately get a hold of any friends, or the social research assistant for housing. He does have his home medications, as well as insulin. He was evaluated at [facility] earlier today, and states that the work-up was unremarkable feels that he does not want any additional testing now but is here to get help with housing. Physical exam is unremarkable. No signs of trauma. Blood glucose is greater than 390, we will give 10 units of subcutaneous insulin. No other emergent work-up indicated at this time. We will contact case management to help him get housing in the area. 9:40 PM After an extended episode of contact between various senior care houses here, and multiple episodes of contact with her rn case manager hospice we have been unable to find a place for the patient to stay this evening. We will allow him to stay here in the ED this evening, discharge him in the morning. He will contact Kandy Ku for further assistance in the morning to see if there is anything additional they can do tomorrow. I have extensively reviewed the treatment plan and discharge instructions with the patient. I have addressed all patient concerns at this time. The patient was made aware of what symptoms to monitor for that would warrant a return to the emergency department. Discussed the plan with the patient, they demonstrate verbal understanding and agreement with our assessment and plan at this time. HPI General Date/Time Provider Initiated Documentation: 10/14/19 19:39. HPI Narrative: This is a 68-year-old male with a past medical history of type 2 diabetes, hypertension, chronic kidney disease coronary artery disease and an unfortunate history of multiple episodes of homelessness. He presents today for evaluation for help with his social home status. Patient has been living in [facility] for the last few months, unfortunately he was extricated out of the place that he was living, he hitchhiked over here to [facility] for added help. Because it is a holiday weekend he was not able to immediately get a hold of any friends, or the social research assistant for housing. He does have his home medications, as well as insulin. He was evaluated at [facility] earlier today, and states that the work-up was unremarkable feels that he does not want any additional testing now but is here to get help with housing. He denies complaints of chest pain, shortness of breath, fever, chills, nausea, vomiting, headache, limb pain, numbness tingling or focal weakness. No other complaints or modifying factors. Related Data Home Medications Medication Instructions Recorded Confirmed insulin detemir U-100 20 unit SUBCUT HS #15 ml 02/26/19 10/14/19 insulin lispro [Humalog KwikPen 8 unit SC QAC #15 ml 02/26/19 10/14/19 Insulin] FreeStyle Lite Strips #100 each 02/27/19 aspirin 81 mg PO DAILY #30 tab 02/27/19 10/14/19 atorvastatin 80 mg PO QHS #30 tab 02/27/19 10/14/19 blood-glucose meter [FreeStyle #1 each 02/27/19 Lite Meter] clopidogrel [Plavix] 75 mg PO DAILY #30 tab 02/27/19 10/14/19 lancets [Lancets,Thin] #100 each 02/27/19 magnesium oxide 400 mg PO BID #60 tab 02/27/19 10/14/19 nitroglycerin [Nitrostat] 0.4 mg SUBLINGUAL Q5 MIN PRN X3 02/27/19 10/14/19 PRN #60 tab amlodipine-benazepril 1 cap PO DAILY 10/14/19 10/14/19 Previous Rx's Medication Instructions Recorded insulin detemir U-100 20 unit SUBCUT HS #15 ml 02/26/19 insulin lispro [Humalog KwikPen 8 unit SC QAC #15 ml 02/26/19 Insulin] FreeStyle Lite Strips #100 each 02/27/19 aspirin 81 mg PO DAILY #30 tab 02/27/19 atorvastatin 80 mg PO QHS #30 tab 02/27/19 blood-glucose meter [FreeStyle #1 each 02/27/19 Lite Meter] clopidogrel [Plavix] 75 mg PO DAILY #30 tab 02/27/19 lancets [Lancets,Thin] #100 each 02/27/19 magnesium oxide 400 mg PO BID #60 tab 02/27/19 nitroglycerin [Nitrostat] 0.4 mg SUBLINGUAL Q5 MIN PRN X3 02/27/19 PRN #60 tab Allergies Allergy/AdvReac Type Severity Reaction Status Date / Time No Known Allergies Allergy Unverified 02/24/19 14:56 General Stated Complaint: Diabetes DREW: 3 Review of Systems All systems reviewed & are unremarkable except as noted in HPI and below [facility] Medical History CAD (coronary artery disease) (Suspected) CKD (chronic kidney disease) (Chronic) HTN (hypertension) (Chronic) Uncontrolled type 2 diabetes mellitus with chronic kidney disease (Acute) Social History Smoking/Tobacco Use Status: Never Alcohol Intake: never Drug use: Never Substance use type: does not use Do you feel safe at home: No (patient is homeless) Do you feel safe in your relationship?: Yes Exam Narrative Exam Narrative: 1.Const: Well-nourished, Well-developed, appearing stated age 2.Eyes: PERRL, no conjunctival injection, and symmetrical lids. 3.ENT: Atraumatic external nose and ears. Moist MM. Neck: Symmetric, trachea midline, No thyromegaly. 4.CVS: +S1/S2, No murmurs or gallops. Peripheral pulses 2+ and equal in all extremities. Brisk capillary refill in all extremities. 5.RESP: Unlabored respiratory effort. Clear to auscultation bilaterally. No wheezes rales or rhonchi 6.GI: Soft, Nontender/Nondistended, No hepatosplenomegaly. No guarding or rebound. 7.MSK: Normocephalic/Atraumatic, Extremities w/o deformity or ttp No cyanosis or clubbing, Normal movement of all extremities 8.Skin: Warm, Dry. No rashes or lesions. 9.Neuro: atlassian administrator II-XII grossly intact. Sensation grossly intact, no focal neurologic deficits. 10.Psych: (AAO) x3. Appropriate mood and affect Course Vital Signs Vital signs: Vital Signs Temperature 36.6 C 10/14/19 19:40 Pulse 99 H 10/14/19 19:40 Respiratory Rate 16 10/14/19 19:40 Blood Pressure 129/75 10/14/19 19:40 Pulse Oximetry 98 10/14/19 19:40 Temperature 36.6 C 10/14/19 19:40 Temperature Source Oral 10/14/19 19:40 Pulse 99 H 10/14/19 19:40 Respiratory Rate 16 10/14/19 19:40 Respiratory Effort 10/14/19 19:43 Blood Pressure 129/75 10/14/19 19:40 Blood Pressure Position Sitting 10/14/19 19:40 Pulse Oximetry 98 10/14/19 19:40 Oxygen Delivery Method Room Air 10/14/19 19:40 Oxygen Flow Rate 0 10/14/19 19:40 Pain Level 0 10/14/19 19:40
[2019-10-14] MEDS: Insulin REGULAR-Human 100 UNITS/ML UNIT 10 UNITS SC (21:24)
[2019-10-14 21:40] VITALS: BP 119/83; PULSE 84; RESP 16; O2SAT 99
--- NOTE | 2019-10-15 18:11 | CMPROGNOTE_ITS ---
- If Service Date Differs Date of service: 10/15/19 Time of Service: 18:11 Care Management Progress Note CM met with Cameron today after receiving a call from Dr. Harris that the patient was in the ED and homeless. Cameron was unable identified to get services here in [place] because he is receiving benefits in [place]. CM left several messages in the community and with [facility] today not able to find housing. CM reviewed out of the area shelters including [place], [place], and [place] he refused them. He said he was going to see if he could stay at the local [facility] for a few days. I did leave several messages with [place] [id number] which provides the emergency housing services but have not heard back. I encouraged Cameron to return to [place] as it would be likely he could get emergency long-term there but not sure he wants to do that. P: Unable to find emergency long-term for Cameron, CM was able to contact local taxi and provided transportation to the [facility] in [facility]. Cameron does have enough money to pay for a few nights in the motel but it would use up all his resources for this month. CM requested 211 call him back to follow up on need for long-term.
--- NOTE | 2019-10-15 18:11 | PDOC.ERCMPRO ---
- If Service Date Differs Date of service: 10/15/19 Time of Service: 18:11 Care Management Progress Note CM met with Cameron today after receiving a call from Dr. Harris that the patient was in the ED and homeless. Cameron was unable identified to get services here in [place] because he is receiving benefits in [place]. CM left several messages in the community and with [facility] today not able to find housing. CM reviewed out of the area shelters including [place], [place], and [place] he refused them. He said he was going to see if he could stay at the local [facility] for a few days. I did leave several messages with [place] [id number] which provides the emergency housing services but have not heard back. I encouraged Cameron to return to [place] as it would be likely he could get emergency fpc there but not sure he wants to do that. P: Unable to find emergency fpc for Cameron, CM was able to contact local taxi and provided transportation to the [facility] in [facility]. Cameron does have enough money to pay for a few nights in the motel but it would use up all his resources for this month. CM requested 211 call him back to follow up on need for fpc.
--- NOTE | 2019-10-18 16:07 | CMPROGNOTE_ITS ---
- If Service Date Differs Date of service: 10/18/19 Time of Service: 16:07 Care Management Progress Note S/O: BRAN spoke with Cameron this afternoon he is now willing to go to the [facility] in [place], [place]. CM contacted [facility] to arrange transportation. CM contacted [facility] and they agree he can go over and they have a male bed. They will assist Cameron with housing resources, Cameron states he also has family over in that area. P: Cameron will go to the [facility] for [facility]. CM coordinated transportation. Cameron is appreciative of the assistance.
--- NOTE | 2019-10-18 16:07 | PDOC.ERCMPRO ---
- If Service Date Differs Date of service: 10/18/19 Time of Service: 16:07 Care Management Progress Note S/O: BRAN spoke with Cameron this afternoon he is now willing to go to the [facility] in [place], [place]. CM contacted [facility] to arrange transportation. CM contacted [facility] and they agree he can go over and they have a male bed. They will assist Cameron with housing resources, Cameron states he also has family over in that area. P: Cameron will go to the [facility] for mcc. CM coordinated transportation. Cameron is appreciative of the assistance.
== END 2019-10-14 22:10 | disposition home or self-care (01) ==
PROVIDERS: Emergency Provider Student in an Organized Health Care Education/Training Program; PCP Nurse Practitioner Family
DX: E11.65 Type 2 diabetes mellitus with hyperglycemia (principal); Z59.0 Homelessness; I12.9 Hypertensive chronic kidney disease with stage 1 through stage 4 chronic kidney disease, or unspecified chronic kidney disease; N18.9 Chronic kidney disease, unspecified; E11.22 Type 2 diabetes mellitus with diabetic chronic kidney disease; Z79.4 Long term (current) use of insulin
CPT/HCPCS: 36416; 82962; 96372; 99284; 99283